=== PATIENT | male | born 1945 | race Caucasian/White ===

== ENCOUNTER 2019-05-07 21:17 | Emergency (ER) | payer MEDICARE ==
[~2019-05-07] VITALS: Ht 180.3 cm; Wt 93.4 kg
[2019-05-07 23:05] LABS: BASOPHILS # (AUTO) 0.1 (0.0-0.1); BASOPHILS % 0.5 % (0.0-1.0); EOSINOPHILS # (AUTO) 0.1 (0.0-0.4); EOSINOPHILS % 1.1 % (0.0-6.0); HEMATOCRIT 43.7 % (38.2-49.6); HEMOGLOBIN 15.8 g/dL (14.0-18.0); LYMPHOCYTES # (AUTO) 1.5 (1.0-3.2); LYMPHOCYTES % 15.8 % (18.0-39.1); MEAN CORPUSCULAR HEMOGLOBIN 31.7 pg (28-32); MEAN CORPUSCULAR HGB CONC 36.2 g/dL (31-35); MEAN CORPUSCULAR VOLUME 87.6 fL (81-99); MONOCYTES # (AUTO) 0.8 (0.2-0.8); MONOCYTES % 7.9 % (4.4-11.3); NEUTROPHILS # (AUTO) 7.1 (2.1-6.9); NEUTROPHILS % 73.8 % (38.7-80.0); PLATELET COUNT 343 x10e3/uL (140-360); RED BLOOD COUNT 4.99 x10e6/uL (4.3-5.7); RED CELL DISTRIBUTION WIDTH 13.3 % (11.7-14.4)
[2019-05-07 23:06] LABS: BILIRUBIN,URINE NEGATIVE (NEGATIVE); CLARITY,URINE CLOUDY (CLEAR); COLOR,URINE YELLOW (YELLOW); KETONES,URINE NEGATIVE (NEGATIVE); LEUKOCYTE ESTERASE ,URINE LARGE (NEGATIVE); NITRITE,URINE POSITIVE (NEGATIVE); PROTEIN,URINE DIPSTICK 1+ (NEGATIVE); URINE UROBILINOGEN 0.2 mg/dL (0.2 - 1)
[2019-05-07 23:19] LABS: BACTERIA,URINE MANY /HPF; EPITHELIAL CELLS,URINE FEW /LPF; WBC,URINE (MAN) >50 /HPF (0-5)
[2019-05-07 23:20] LABS: RENAL EPITHELIAL CELLS,URINE FEW; TRANSITIONAL EPI CELLS,URINE FEW
[2019-05-07 23:21] LABS: ANION GAP 15.5 mmol/L (8-16); BLOOD UREA NITROGEN 14 mg/dL (7-26); BUN/CREATININE RATIO 12 (6-25); CALCIUM 9.6 mg/dL (8.4-10.2); CARBON DIOXIDE 23 mmol/L (22-29); CHLORIDE 103 mmol/L (98-107); CREATININE, SERUM 1.15 mg/dL (0.72-1.25); EST GLOMERULAR FILTRATION RATE > 60 ML/MIN (60-); GLUCOSE 173 mg/dL (74-118); POTASSIUM 3.5 mmol/L (3.5-5.1); SODIUM 138 mmol/L (136-145)
--- NOTE | 2019-05-07 23:26 | Diagnostic Imaging Report ---
CT Abdomen and Pelvis without contrast INDICATION: Flank pain, history of urostomy TECHNIQUE: Thin collimation axial images obtained from the diaphragm to the level of the pubic symphysis without nonionic intravenous contrast. Dose reduction techniques used: Automated exposure control, adjustment of the mAs and/or kVp according to patient size, standardized low-dose protocol, and/or iterative reconstruction technique. RADIATION DOSE: Total DLP: 688.6 mGy*cm Estimated effective dose: (DLP x 0.015 x size factor) mSv CTDIvol has been reviewed. It is below the limits set by the Radiation Protocol Committee (RPC). COMPARISON: None. ABDOMEN FINDINGS: Lung Bases: Mild atelectasis and bibasilar fibrotic changes. There is prominence of the pericardial fat pads. Liver: Normal in attenuation without mass. Gallbladder: Present and contains a calcified gallstone measuring 12 mm. No ductal dilatation. Pancreas: Fatty atrophy without mass or ductal dilatation. Spleen: Top normal in size. No mass. Adrenal Glands: No evidence for mass. Kidneys: Right: No renal calculus. Large cyst extending into the renal sinus measures 5.6 x 7.7 cm. No hydronephrosis Left: No renal calculus. A cyst in the posterior interpolar cortex measures 3.5 cm. Mild fullness of the renal collecting system. Aorta: Normal in diameter with diffuse calcifications PELVIS FINDINGS: Bowel: Stomach: Normal. Small Bowel: Normal in caliber with normal wall thickness. Large Bowel: Diverticulosis coli. No associated inflammation. Appendix: Normal. Bladder: Absent. Right lower quadrant ileostomy is present without parastomal hernia. Ureters: The left ureter is mildly distended without surrounding inflammation or evidence of calculus. No calculus in the right ureter. Peritoneum/retroperitoneum: No free fluid or fluid collection. Lymph nodes: No abdominal, pelvic, or inguinal lymphadenopathy.. Bones: Degenerative changes of the spine. Mild height loss of the L3 vertebral body, likely chronic. Grade 1 retrolisthesis of L3 on L4 without pars defects. Mild degenerative changes of the hips. No lytic or blastic lesions.. IMPRESSION: 1. Status post cystectomy and ileal conduit formation. No evidence of renal calculus. Mild nonspecific fullness of the left renal pelvis and left ureter without doretha hydroureteronephrosis. Urinary tract infection cannot be excluded. 2. Diverticulosis coli. No evidence for bowel obstruction or inflammation. Normal appendix. 3. Bilateral renal cysts. 4. Cholelithiasis. Normal biliary tree. Signed by: Dr. Evelio Vilchis MD on 05/07/2019 11:23 PM
[2019-05-07] MEDS ORDERED: KETOROLAC TROMETHAMINE 30 MG/ML VIAL IV ONE (23:45)
[2019-05-07] MEDS ORDERED: CEFTRIAXONE SOD 1 GM/NS 50 ML 50 ML IV ONE (23:45)
[2019-05-08 00:57] VITALS: BP 146/70
== END 2019-05-08 01:06 | disposition home or self-care (01) ==
LOC: ER 21:17
DX: R10.9 Unspecified abdominal pain (principal); M54.5 Low back pain; I10 Essential (primary) hypertension; E11.9 Type 2 diabetes mellitus without complications; Z85.51 Personal history of malignant neoplasm of bladder
CPT/HCPCS: 36415; 74176; 80048; 81001; 85025; 87086; 87186; 99284; J0696; J1885

== ENCOUNTER 2020-02-06 11:48 | Observation (INO) | payer MEDICARE ==
[2020-02-05] MEDS: INSULIN LISPRO 100 UNIT/1 ML 3ML VIAL SQ SCH (21:40)
[~2020-02-06] VITALS: Ht 154.9 cm; Wt 96.2 kg
[2020-02-06] MEDS ORDERED: CARVEDILOL6.25 MG PO (11:59)
[2020-02-06] MEDS ORDERED: LOVASTATIN20 MG PO (11:59)
[2020-02-06] MEDS ORDERED: JANUMET XR 1001 EACH PO (11:59)
[2020-02-06] MEDS ORDERED: RAMIPRIL10 MG PO (11:59)
[2020-02-06] MEDS ORDERED: PANTOPRAZOLE 40 MG 10ML VIAL IV NR (12:15)
[2020-02-06 12:25] LABS: BASOPHILS % 0.5 % (0.0-1.0); EOSINOPHILS # (AUTO) 0.1 (0.0-0.4); EOSINOPHILS % 1.5 % (0.0-6.0); HEMATOCRIT 45.4 % (38.2-49.6); HEMOGLOBIN 15.6 g/dL (14.0-18.0); LYMPHOCYTES # (AUTO) 1.4 (1.0-3.2); LYMPHOCYTES % 23.3 % (18.0-39.1); MEAN CORPUSCULAR HEMOGLOBIN 30.2 pg (28-32); MEAN CORPUSCULAR HGB CONC 34.4 g/dL (31-35); MONOCYTES # (AUTO) 0.6 (0.2-0.8); MONOCYTES % 9.6 % (4.4-11.3); NEUTROPHILS % 64.1 % (38.7-80.0); PLATELET COUNT 290 x10e3/uL (140-360); RED BLOOD COUNT 5.16 x10e6/uL (4.3-5.7); RED CELL DISTRIBUTION WIDTH 13.3 % (11.7-14.4)
[2020-02-06 12:33] LABS: INR 1.02; PROTHROMBIN TIME 13.9 seconds (11.9-14.5)
[2020-02-06 12:34] LABS: PARTIAL THROMBOPLASTIN TIME 32.6 seconds (23.8-35.5)
[2020-02-06 12:44] LABS: ALANINE AMINOTRANSFERASE 11 IU/L (0-55); ALBUMIN/GLOBULIN RATIO 1.3 (0.8-2.0); ALKALINE PHOSPHATASE 51 IU/L (40-150); ANION GAP 11.8 mmol/L (8-16); BLOOD UREA NITROGEN 19 mg/dL (7-26); BUN/CREATININE RATIO 15 (6-25); CALCIUM 9.6 mg/dL (8.4-10.2); CARBON DIOXIDE 25 mmol/L (22-29); CHLORIDE 107 mmol/L (98-107); CREATINE KINASE 49 IU/L (30-200); CREATININE, SERUM 1.24 mg/dL (0.72-1.25); EST GLOMERULAR FILTRATION RATE 57 ML/MIN (60-); GLUCOSE 150 mg/dL (74-118); POTASSIUM 4.8 mmol/L (3.5-5.1); SODIUM 139 mmol/L (136-145)
--- OUTSIDE RECORDS SUMMARY | 2020-02-06 13:21 | XMS REPORT | Summary of Care ---
Author Author [facility] Organization [facility] Address Unknown Phone Unavailable Care Team Providers Care Launchman Name Role Phone Roya Hoffmann PCP Encounter HQ Trentntr_gray(FIN) [id number] Date(s): 06/11/18 - 06/12/18 [facility] [address] [place] [address]- Vital Signs No data available for this section Problem List Condition Effective Dates Status Health Status Informan t Benign essential Active HTN(Confirmed) Mixed Active hypertriglyceridemia (Confirmed) History of TIA Active (transient ischemic attack)(Confirmed) Bladder Resolved cancer(Confirmed) Microalbuminuria(Con Active firmed) Type 2 diabetes Active mellitus(Confirmed) Presence of Active urostomy(Confirmed) Allergies, Adverse Reactions, Alerts Substance Reaction Severity Status sulfa drugs Active NKFA Active Medications Janumet XR 100 mg-1000 mg oral tablet, extended release = 1 tab, PO, Daily, # 90 ea, Pharmacy: [facility] Start Date: 11/27/18 Status: Ordered lovastatin 20 mg oral tablet = 1 tab, PO, Bedtime, # 90 ea, Pharmacy: [facility] Start Date: 11/27/18 Status: Ordered metFORMIN-sitaGLIPtin 1000 mg-100 mg oral tablet, extended release 1 tab, PO, Daily, # 90 tab, 1 Refill(s), Pharmacy: [facility] Start Date: 06/11/18 Stop Date: 11/27/18 Status: Completed Results No data available for this section Immunizations Given and Recorded Vaccine Date Status Refusal Reason influenza virus vaccine, inactivated 04/02/18 G iven Procedures Procedure Date Related Diagnosis Body Site Status Diabetic retinal eye exam1 03/12/18 Completed Construction of urostomy2 06/24/05 Completed Cataract surgery Completed Prostatectomy Completed 1No Retinopathy Dr. Fredy Baird 2Estimated date. This was done for history of bladder cancer. He reports prostate was removed at the same time Social History Social History Type Response Substance Abuse Use: None. Sexual Sexually active: No. Employment/School Status: Employed. 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 Alcohol Never Smoking Status Never smoker; Exposure to T obacco Smoke None; Cigarette Smoking Last 365 Days No; Reg Smoking Cessation Counseli ng No entered on: 11/12/18 Assessment and Plan No data available for this section
--- OUTSIDE RECORDS SUMMARY | 2020-02-06 13:21 | XMS REPORT | Summary of Care ---
Author Author [facility] Organization [facility] Address Unknown Phone Unavailable Care Team Providers Care Director Workers Compensation Name Role Phone Roya Hoffmann PCP Encounter HQ Ashwin_gray(FIN) [id number] Date(s): 05/25/19 - 05/25/19 [facility] [address] [address]- Discharge Disposition: Home or Self Care Attending Physician: Krystina Lu MD Vital Signs Most recent to 1 oldest [Reference Range]: Height 179.07 cm (05/25/19 3:24 PM) Temperature Oral 98.5 DegF [96.4-99.1 DegF] (05/25/19 3:24 PM) Blood Pressure 119/72 mmHg [90-140/60-90 mmHg] (05/25/19 3:24 PM) Peripheral Pulse 83 bpm Rate [60-100 bpm] (05/25/19 3:24 PM) Weight 95.511 kg (05/25/19 3:24 PM) Body Mass Index 29.79 m2 (05/25/19 3:24 PM) Problem List Condition Effective Dates Status Health Status Informan t Benign essential Active HTN(Confirmed) Diabetic peripheral Active neuropathy(Confirmed ) Mixed Active hypertriglyceridemia (Confirmed) History of TIA Active (transient ischemic attack)(Confirmed) Bladder Resolved cancer(Confirmed) Microalbuminuria(Con Active firmed) Pyelonephritis(Confi Active rmed) Type 2 diabetes Active mellitus(Confirmed) Presence of Active urostomy(Confirmed) Allergies, Adverse Reactions, Alerts Substance Reaction Severity Status sulfa drugs Active NKFA Active Medications ciprofloxacin 500 mg oral tablet 500 mg = 1 tab, PO, Q12H, X 7 day, # 14 tab, 0 Refill(s), Pharmacy: [facility] [place] [id number] Start Date: 05/25/19 Stop Date: 06/01/19 Status: Ordered Results No data available for this section Immunizations Given and Recorded Vaccine Date Status Refusal Reason influenza virus vaccine, inactivated 05/15/19 G iven influenza virus vaccine, inactivated 04/02/18 G iven Procedures Procedure Date Related Diagnosis Body Site Status Diabetic retinal eye exam1 03/12/18 Completed Construction of urostomy2 06/24/05 Completed Cataract surgery Completed Prostatectomy Completed 1No Retinopathy Dr. Fredy Baird 2Estimated date. This was done for history of bladder cancer. He reports prostate was removed at the same time Social History Social History Type Response Alcohol Never Employment/School Status: Employed. 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 Sexual Sexually active: No. Substance Abuse Use: None. Smoking Status Never smoker; Exposure to T obacco Smoke None; Cigarette Smoking Last 365 Days No; Reg Smoking Cessation Counseli ng No entered on: 05/25/19 Assessment and Plan No data available for this section
--- OUTSIDE RECORDS SUMMARY | 2020-02-06 13:21 | XMS REPORT | Summary of Care ---
Author Author [facility] Organization [facility] Address Unknown Phone Unavailable Care Team Providers Care Channel Layer Name Role Phone Krystina Lu PCP Encounter HQ Trentntr_gray(FIN) [id number] Date(s): 11/24/19 - 11/25/19 [facility] [address] [place] [address]- Vital Signs No data available for this section Problem List Condition Effective Dates Status Health Status Informan t Benign essential Active HTN(Confirmed) [place] of Active foot(Confirmed) Mixed Active hypertriglyceridemia (Confirmed) History of TIA Active (transient ischemic attack)(Confirmed) Bladder Resolved cancer(Confirmed) Microalbuminuria(Con Active firmed) PAD (peripheral Active artery disease)(Confirmed) Pyelonephritis(Confi Resolved rmed) Type 2 diabetes Active mellitus with peripheral neuropathy(Confirmed ) Presence of Active urostomy(Confirmed) Allergies, Adverse Reactions, Alerts Substance Reaction Severity Status sulfa drugs Active NKFA Active Medications No data available for this section Results No data available for this section Immunizations Given and Recorded Vaccine Date Status Refusal Reason influenza virus vaccine, inactivated 05/15/19 G iven influenza virus vaccine, inactivated 04/02/18 G iven Procedures Procedure Date Related Diagnosis Body Site Status Diabetic retinal eye exam1 03/12/18 Completed Colonoscopy2 2015 Completed Construction of urostomy3 06/24/05 Completed Cataract surgery Completed Prostatectomy Completed 1No Retinopathy Dr. Fredy Baird [id number] - Repeat 5 years 3Estimated date. This was done for history of bladder cancer. He reports prostate was removed at the same time Social History Social History Type Response Alcohol Never Employment/School Status: Employed. 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 Sexual Sexually active: No. Substance Abuse Use: None. Smoking Status Never smoker; Exposure to T obacco Smoke None; Cigarette Smoking Last 365 Days No; Reg Smoking Cessation Counseli ng No entered on: 11/20/19 Assessment and Plan No data available for this section
--- OUTSIDE RECORDS SUMMARY | 2020-02-06 13:21 | XMS REPORT | Continuity of Care Document ---
Author Author [facility] [employer] Organization [employer] Address Unknown Phone Unavailable Care Team Providers Care Network Engineer Name Role Phone [employer] Unavailable Un available Problems Problem Status Onset Date Classification Date Reported Comments Source BRAIN TIA Active 12/06/2017 [facility] TEMPORARY CONFUSION Active 12/06/2017 [facility] Benign essential hypertension (disorder) Active Problem 01/30/2020 [facility] Familial type 5 hyperlipoproteinemia (disorder) Active Problem 01/30/2020 [facility] History of - TIA (context-dependent category) Active Problem 01/30/2020 [facility] Malignant tumor of urinary bladder (disorder) Resolved Problem 01/30/2020 [facility] Microalbuminuria (finding) [place] Problem 01[facility] Diabetes mellitus type 2 (disorder) Active Problem 01/2020 [facility] t Urostomy present (finding) Act [place] Problem 01/2020 [facility] t Diabetic peripheral neuropathy (disorder) Active Problem 07/11/2019 [facility] Pyelonephritis (disorder) Reso lved Problem 01/2020 [facility] [place] - lesion (disorder) Active Problem 01/30/2020 [facility] Peripheral vascular disease (disorder) Active Problem 01/2020 [facility] Medications Medication Details Route Status Patient Instructions Ordering Provider Order Date Source lovastatin 20 mg oral tablet S ee Instructions, TAKE 1 TABLET BY MOUTH EVERY DAY, # 90 tab, 3 Refill(s), Pharmacy: [id number], 177.8, cm, 11/20/19 9:46:00 CDT, Height, 94.545, kg, 11/20/19 9:46:00 CDT, Weight Active 01/27/2020 [facility] 24 HR Metformin hydrochloride 1000 MG / sitagliptin 100 MG Extended Release Tablet [Janumet 100/1000] 1 tab, PO, Daily, # 90 ea, 1 Refill(s), Pharmacy: [facility] #[id number], 177.8, cm, 11/20/19 9:46:00 CDT, Height, 94.545, kg, 11/20/19 9:46:00 CDT, Weight Active 12/02/2019 [facility] carvedilol 6.25 mg oral tablet 6.25 mg = 1 tab, PO, BID, # 180 tab, 3 Refill(s), Pharmacy: [facility] Active 07/07/2019 [facility] ciprofloxacin 500 mg oral tablet 500 mg = 1 tab, PO, Q12H, X 7 day, # 14 tab, 0 Refill(s), Pharmacy: [facility] Active 05/25/2019 [facility] 24 HR Metformin hydrochloride 1000 MG / sitagliptin 100 MG Extended Release Tablet [Janumet 100/1000] 1 tab, PO, Daily, # 90 ea, 1 Refill(s), Pharmacy: [place] [address] Active 05/15/2019 [facility] carvedilol 6.25 mg oral tablet 6.25 mg = 1 tab, PO, BID, # 180 tab, 3 Refill(s), Pharmacy: [place] [address] Active 05/02/2019 [facility] 24 HR Metformin hydrochloride 1000 MG / sitagliptin 100 MG Extended Release Tablet [Janumet 100/1000] = 1 tab, PO, Daily, # 90 ea, Pharmacy: [place] [address] Active 11/28/2018 [facility] lovastatin 20 mg oral tablet = 1 tab, PO, Bedtime, # 90 ea, Pharmacy: [place] [address] Active 11/28/2018 [facility] FreeStyle Precision Amrit Blood Glucose Test Strips 1 ea, MISC, Daily, E11.9, # 100 ea, Not insulin dependent, Does not use insulin pump, Last DM eval date 11/12/18, 3 Refill(s), Pharmacy: [facility] Active 11/12/2018 [facility] 24 HR Metformin hydrochloride 1000 MG / sitagliptin 100 MG Extended Release Tablet 1 tab, PO, Daily, # 90 tab, 1 Refill(s), Pharmacy: [place] [address] No Longer Active 06/11/2018 [facility] lovastatin 20 mg oral tablet 2 0 mg = 1 tab, PO, Bedtime, # 90 tab, 1 Refill(s), Pharmacy: [facility] No Longer Active 06/04/2018 [facility] carvedilol 6.25 mg oral tablet 6.25 mg = 1 tab, PO, BID, # 180 tab, 3 Refill(s), Pharmacy: [facility] Active 05/01/2018 [facility] Folic Acid Notes: (Same as: Fo lvite) No Longer Active 12/08/2017 [facility] Lipitor Notes: (Same As: Lipit or) Inactive 12/08/2017 [facility] Lovastatin 20 mg, Route: PO, D rug form: TAB, Bedtime, Dosing Weight 95.636, kg, Start date: 12/07/17 21:00:00 CDT, Duration: 30 day, Stop date: 01/05/18 21:00:00 CDT No Longer Active 12/08/2017 [facility] Tricor Notes: (Same as: Tricor) Inactive 12/07/2017 [facility] Folic Acid 1 MG Oral Tablet 1 mg, PO, Daily, # 30 tab, 0 Refill(s), Pharmacy: [facility] Active 12/07/2017 [facility] Fenofibrate 145 MG Oral Tablet 145 mg = 1 tab, PO, Daily, # 30 tab, 0 Refill(s), Pharmacy: [facility] Active 12/07/2017 [facility] Saline Flush 0.9% Notes: (Same as: BD Posiflush) Inactive 12/07/2017 [facility] Aspirin 81 MG Enteric Coated Tablet Notes: Do not crush or chew. (Same As: Ecotrin) Inactive 12/07/2017 [facility] Fish Oil Notes: (Same as: José Miguel JAY, [place] 3 fish oil ) Non-Formulary Drug Inactive 12/07/2017 [facility] Ramipril Notes: (Same as:Altac e) Inactive 12/07/2017 [facility] carvedilol Notes: Give with fo od. (Same As: Coreg) Inactive 12/07/2017 [facility] Dextrose 50% Syringe 12.5 gm, 25 mL, Route: IVP, Drug Form: INJ, Dosing Weight 95.636, kg, PRN, PRN Blood Glucose Results, Start date: 12/06/17 23:29:00 CDT, Duration: 30 day, Stop date: 01/05/18 23:28:00 CDT No Longer Active 12/07/2017 [facility] Glucagon 1 mg, Route: IM, Drug form: PDR/INJ, PRN, Dosing Weight 95.636, kg, PRN Blood Glucose Results, Start date: 12/06/17 23:29:00 CDT, Duration: 30 day, Stop date: 01/05/18 23:28:00 CDT No Longer Active 12/07/2017 [facility] Insulin Lispro Notes: (Same as : Humalog ) Roll in palms of hands gently; Do not shake `vigorously. "Single Patient Use Only " WASTE: F/P - Black; E - Municipal Trash Bin Stable for 28 days at room temp erature. Expires in days from Date No Longer Active 12/07/2017 [facility] Saline Flush 0.9% Notes: (Same as: BD Posiflush) No Longer Active 12/07/2017 [facility] Aspirin Notes: Take with food. Inactive 12/07/2017 [facility] Allergies, Adverse Reactions, Alerts Substance Category Reaction Severity Reaction type Status Date Reported Comments Source sulfa drugs Assertion Drug allergy Active [facility] NKFA Assertion Food allergy Active [facility] Immunizations Immunization Date Given Site Status Last Updated Comments Source influenza virus vaccine, inactivated 05/15/2019 Right Deltoid completed [facility] influenza virus vaccine, inactivated 04/02/2018 Right Deltoid completed [facility] Results Order Name Results Value Reference Range Date Interpretation Comments Source CHEM PANEL eGFR 76 12/07/2017 Result Comment: The eGFR is calculated using the CKD-EPI formula. In most young, healthy individuals the eGFR will be >90 mL/min/1.73m2. The eGFR declines with age. An eGFR of 60-89 may be normal in some populations, particularly the elderly, for whom the CKD-EPI formula has not been extensively validated. Use of the eGFR is not recommended in the following populations:

Individuals with unstable creatinine concentrations, including patients and those with serious co-morbid conditions.

Patients with extremes in muscle mass or diet.

The data above are obtained from the National Kidney Disease Education Program (NKDEP) which additionally recommends that when the eGFR is used in patients with extremes of body mass index for purposes of drug dosing, the eGFR should be multiplied by the estimated BMI. [facility] CHEM PANEL BUN 16 7 - 22 12/07/2017 [facility] CHEM PANEL AGAP 9.6 10.0 - 20.0 12/07/2017 [facility] CHEM PANEL Calcium Lvl 9.0 8.5 - 10.5 12/07/2017 [facility] CHEM PANEL Creatinine Lvl 0.98 0.50 - 1.40 12/07/2017 [facility] CHEM PANEL Sodium Lvl 142 135 - 145 12/07/2017 [facility] CHEM PANEL Potassium Lvl 3.6 3.5 - 5.1 12/07/2017 [facility] CHEM PANEL CO2 27 24 - 32 12/07/2017 [facility] CHEM PANEL Chloride Lvl 109 95 - 109 12/07/2017 [facility] CHEM PANEL Glucose Lvl 133 70 - 99 12/07/2017 [facility] HEMATOLOGY Eosinophils 1.7 0.0 - 4.0 12/07/2017 [facility] HEMATOLOGY Basophils 0.4 0.0 - 1.0 12/07/2017 [facility] HEMATOLOGY Lymphocytes # 1.7 1.0 - 5.5 12/07/2017 [facility] HEMATOLOGY Segs-Bands # 4.3 1.5 - 8.1 12/07/2017 [facility] HEMATOLOGY Monocytes # 0.6 0.0 - 0.8 12/07/2017 [facility] HEMATOLOGY Eosinophils # 0.1 0.0 - 0.5 12/07/2017 [facility] Monocytes 9.4 2.0 - 12.0 12/07/2017 [facility] Lymphocytes 25.7 20.0 - 40.0 12/07/2017 [facility] HEMATOLOGY Segs 62.8 45.0 - 75.0 12/07/2017 [facility] MCV 88.2 80.0 - 94.0 12/07/2017 [facility] MCHC 34.5 32.0 - 36.0 12/07/2017 [facility] MCH 30.5 27.0 - 31.0 12/07/2017 [facility] Platelet 229 133 - 450 12/07/2017 [facility] RDW 14.1 11.5 - 14.5 12/07/2017 [facility] Hct 43.7 42.0 - 54.0 12/07/2017 [facility] MPV 8.9 7.4 - 10.4 12/07/2017 [facility] HEMATOLOGY WBC 6.8 3.7 - 10.4 12/07/2017 [facility] HEMATOLOGY Hgb 15.1 14.0 - 18.0 12/07/2017 [facility] HEMATOLOGY RBC 4.95 4.70 - 6.10 12/07/2017 [facility] SPECIAL CHEMISTRY Hgb A1C 7.1 <=5.6 % 12/07/2017 [facility] CARDIAC ENZYMES Troponin-I <0.02 0.00 - 0.40 12/06/2017 [facility] CARDIAC ENZYMES CK MB <1.0 0.5 - 3.6 12/06/2017 [facility] CARDIAC ENZYMES Total CK 58 12 - 191 12/06/2017 [facility] CARDIAC ENZYMES CK MB Index <1.7 0.0 - 2.5 12/06/2017 [facility] CHEM PANEL eGFR 61 12/06/2017 Result Comment: The eGFR is calculated using the CKD-EPI formula. In most young, healthy individuals the eGFR will be >90 mL/min/1.73m2. The eGFR declines with age. An eGFR of 60-89 may be normal in some populations, particularly the elderly, for whom the CKD-EPI formula has not been extensively validated. Use of the eGFR is not recommended in the following populations:

Individuals with unstable creatinine concentrations, including patients and those with serious co-morbid conditions.

Patients with extremes in muscle mass or diet.

The data above are obtained from the National Kidney Disease Education Program (NKDEP) which additionally recommends that when the eGFR is used in patients with extremes of body mass index for purposes of drug dosing, the eGFR should be multiplied by the estimated BMI. [facility] CHEM PANEL AST 10 0 - 37 12/06/2017 [facility] CHEM PANEL ALT 19 0 - 65 12/06/2017 [facility] CHEM PANEL Alk Phos 56 39 - 136 12/06/2017 [facility] CHEM PANEL Bili Total 0.8 0.2 - 1.3 12/06/2017 [facility] CHEM PANEL AGAP 13.6 10.0 - 20.0 12/06/2017 [facility] CHEM PANEL B/C Ratio 14 6 - 25 12/06/2017 [facility] CHEM PANEL A/G Ratio 1.1 0.7 - 1.6 12/06/2017 [facility] CHEM PANEL Globulin 3.4 2.7 - 4.2 12/06/2017 [facility] CHEM PANEL Creatinine Lvl 1.19 0.50 - 1.40 12/06/2017 [facility] CHEM PANEL Glucose Lvl 201 70 - 99 12/06/2017 [facility] CHEM PANEL Sodium Lvl 143 135 - 145 12/06/2017 [facility] CHEM PANEL BUN 17 7 - 22 12/06/2017 [facility] CHEM PANEL Potassium Lvl 4.6 3.5 - 5.1 12/06/2017 [facility] CHEM PANEL Chloride Lvl 106 95 - 109 12/06/2017 [facility] CHEM PANEL Albumin Lvl 3.9 3.5 - 5.0 12/06/2017 [facility] CHEM PANEL Total Protein 7.3 6.4 - 8.4 12/06/2017 [facility] CHEM PANEL Calcium Lvl 9.1 8.5 - 10.5 12/06/2017 [facility] CHEM PANEL CO2 28 24 - 32 12/06/2017 [facility] HEMATOLOGY RBC 5.24 4.70 - 6.10 12/06/2017 [facility] HEMATOLOGY Hgb 15.8 14.0 - 18.0 12/06/2017 [facility] HEMATOLOGY WBC 8.6 3.7 - 10.4 12/06/2017 [facility] MCH 30.1 27.0 - 31.0 12/06/2017 [facility] HEMATOLOGY MCV 88.6 80.0 - 94.0 12/06/2017 [facility] HEMATOLOGY Hct 46.4 42.0 - 54.0 12/06/2017 [facility] MCHC 34.0 32.0 - 36.0 12/06/2017 [facility] HEMATOLOGY RDW 14.2 11.5 - 14.5 12/06/2017 [facility] HEMATOLOGY Platelet 263 133 - 450 12/06/2017 [facility] HEMATOLOGY MPV 9.3 7.4 - 10.4 12/06/2017 [facility] HEMATOLOGY Eosinophils # 0.1 0.0 - 0.5 12/06/2017 [facility] HEMATOLOGY Monocytes # 0.5 0.0 - 0.8 12/06/2017 [facility] HEMATOLOGY Monocytes 6.3 2.0 - 12.0 12/06/2017 [facility] HEMATOLOGY Eosinophils 0.7 0.0 - 4.0 12/06/2017 [facility] HEMATOLOGY Segs 72.4 45.0 - 75.0 12/06/2017 [facility] HEMATOLOGY Lymphocytes 20.4 20.0 - 40.0 12/06/2017 [facility] Lymphocytes # 1.8 1.0 - 5.5 12/06/2017 [facility] HEMATOLOGY Segs-Bands # 6.2 1.5 - 8.1 12/06/2017 [facility] HEMATOLOGY Basophils 0.2 0.0 - 1.0 12/06/2017 [facility] Pathology Reports No Data Provided for This Section Diagnostic Reports Report Value Date Source Brain wo contrast MRI MRI BRAI N WITHOUT CONTRAST INDICATION: Acute confusion with transient amnesia, transient ischemic attack symptoms COMPARISON: CT brain 12/06/2017 DISCUSSION: There is no appreciable brain atrophy. The white matter is normal in signal. The normal flow voids of the bilateral internal carotid arteries and vertebral basilar arteries are well visualized. There is no evidence of acute vascular insults, space occupying lesions, hemorrhage, hydrocephalus, midline shift, or extra-axial fluid collections. No cortical-based, suprasellar, craniocervical, or bone abnormalities are seen. IMPRESSION: No intracranial abnormalities are visualized. SL:16 12/07/2017 [facility] Carotid artery Doppler bilat US EXAM: US EXTRACRANIAL ARTERIAL DOPPLER DATE: 12/06/2017 11:26 PM CDT INDICATION: Altered mental status COMPARISON: None. TECHNIQUE: Multiplanar grayscale, color Doppler and spectral Doppler ultrasound of the carotid and vertebral arteries. FINDINGS: RIGHT CAROTID ARTERY: Grayscale images:No significant plaque ICA PSV: 77 cm/sec CCA PSV: 85 cm/sec ICA/CCA PSV RATIO:0.9 Vertebral flow: Antegrade. External carotid: Patent. LEFT CAROTID ARTERY: Grayscale images: No significant plaque ICA PSV: 75 cm/sec CCA PSV: 87 cm/sec ICA/CCA PSV RATIO:0.9 Vertebral flow: Antegrade. External carotid: Patent. IMPRESSION: No evidence for hemodynamically significant stenosis of the carotid arteries. According to the 2003 consensus criteria: <50% stenosis: PSV <125 cm/sec, EDV <40cm/sec, ICA:CCA ratio <2 50-69% stenosis: PSV 125-230cm/sec, EDV 40-100cm/sec, ICA:CCA ratio 2-4 >70% stenosis: PSV >230cm/sec, EDV >100cm/sec, ICA:CCA ratio >4 Reference: Radiology. 2003 [id number]. Carotid Artery Stenosis: Olvera-scale and Doppler US diagnosis- Society of Radiologists in Ultrasound Consensus Conference. Lance EG, Lauro CB, Sasha GL, et. al. SL: [id number] 12/07/2017 [facility] Chest 1view DX Patient Name: Sandip TANNER : 1945; Age: 72 years Male MR: [id number] Study: Chest 1view DX Order Time: 12/06/2017 1:39 PM CDT CLINICAL INDICATION: Chest pain - TIA COMPARISON: None FINDINGS: Lines: None. Lungs: Minimal left lung base atelectasis. No significant effusion or pneumothorax. Mediastinum: The cardiac silhouette is within normal limits of size. Midline trachea. Bones and soft tissues: No acute abnormalities. IMPRESSION: No acute cardiopulmonary abnormalities. SL: [id number] 12/06/2017 [facility] Brain Stroke wo contrast CT EX AM: CT BRAIN WITHOUT CONTRAST DATE: 12/06/2017 1:39 PM CDT INDICATION: - tia symptoms. Acute CVA. COMPARISON: None. TECHNIQUE: Routine axial CT images of the brain were obtained. IV contrast: None. DLP: 859.11 mGy-cm FINDINGS: Non-contrast images of the head demonstrate no edema, hemorrhage, mass lesion or other acute intracranial abnormality. The draek-white matter distinction is preserved. The ventricles are normal. The basal cisterns and sulci are normal in size. Marked atherosclerotic calcification of the distal internal carotid and vertebral arteries. Mild mucosal thickening of the ethmoid air cells. The mastoid air cells are clear. IMPRESSION: 1. No definite acute infarct or intracra nial hemorrhage detected. SL: [id number] 12/06/2017 [facility] Consultation Notes No Data Provided for This Section Discharge Summaries No Data Provided for This Section History and Physicals No Data Provided for This Section Vital Signs Vital Sign Value Date Comments Source Systolic (mm Hg) 146 11/20/2019 [facility] Diastolic (mm Hg) 85 11/20/2019 [facility] Heart Rate 67 11/20/2019 [facility] Temperature Oral (F) 98.7 F 11/20/2019 [facility] Height 177.8 cm 11/20/2019 [facility] Weight 94.545 11/20/2019 [facility] BMI Calculated 29.91 11/20/2019 [facility] Systolic (mm Hg) 128 08/21/2019 [facility] Diastolic (mm Hg) 84 08/21/2019 [facility] Heart Rate 68 08/21/2019 [facility] Temperature Oral (F) 98.5 F 08/21/2019 [facility] Height 177.8 cm 08/21/2019 [facility] Weight 93.636 08/21/2019 [facility] BMI Calculated 29.62 08/21/2019 [facility] Systolic (mm Hg) 119 05/25/2019 [facility] Diastolic (mm Hg) 72 05/25/2019 [facility] Heart Rate 83 05/25/2019 [facility] Temperature Oral (F) 98.5 F 05/25/2019 [facility] Height 179.07 cm 05/25/2019 [facility] Weight 95.511 05/25/2019 [facility] BMI Calculated 29.79 05/25/2019 [facility] Systolic (mm Hg) 141 05/15/2019 [facility] Diastolic (mm Hg) 84 05/15/2019 [facility] Heart Rate 74 05/15/2019 [facility] Temperature Oral (F) 98.5 F 05/15/2019 [facility] Height 179.07 cm 05/15/2019 [facility] Weight 96.023 05/15/2019 [facility] BMI Calculated 29.95 05/15/2019 [facility] Systolic (mm Hg) 143 02/12/2019 [facility] Diastolic (mm Hg) 82 02/12/2019 [facility] Heart Rate 67 02/12/2019 [facility] Temperature Oral (F) 98.4 F 02/12/2019 [facility] Height 179.07 cm 02/12/2019 [facility] Weight 95.455 02/12/2019 [facility] BMI Calculated 29.77 02/12/2019 [facility] Weight 94.545 11/12/2018 [facility] BMI Calculated 29.91 11/12/2018 [facility] Height 177.8 cm 11/12/2018 [facility] Temperature Oral (F) 98.0 F 11/12/2018 [facility] Heart Rate 63 11/12/2018 [facility] Systolic (mm Hg) 120 11/12/2018 [facility] Diastolic (mm Hg) 79 11/12/2018 [facility] Systolic (mm Hg) 153 07/31/2018 [facility] Diastolic (mm Hg) 81 07/31/2018 [facility] Heart Rate 76 07/31/2018 [facility] Temperature Oral (F) 97.6 F 07/31/2018 [facility] Height 177.8 cm 07/31/2018 [facility] Weight 96.364 07/31/2018 [facility] BMI Calculated 30.48 07/31/2018 [facility] Systolic (mm Hg) 118 04/02/2018 [facility] Diastolic (mm Hg) 76 04/02/2018 [facility] Temperature Oral (F) 98.1 F 04/02/2018 [facility] Heart Rate 71 04/02/2018 [facility] BMI Calculated 29.91 04/02/2018 [facility] Height 177.8 cm 04/02/2018 [facility] Weight 94.545 04/02/2018 [facility] Systolic (mm Hg) 112 12/07/2017 [facility] Diastolic (mm Hg) 63 12/07/2017 [facility] Respitory Rate 17 12/07/2017 [facility] Heart Rate 77 12/07/2017 [facility] Temperature Oral (F) 99.0 F 12/07/2017 [facility] Systolic (mm Hg) 144 12/07/2017 [facility] Diastolic (mm Hg) 71 12/07/2017 [facility] Respitory Rate 17 12/07/2017 [facility] Heart Rate 71 12/07/2017 [facility] Temperature Oral (F) 98.9 F 12/07/2017 [facility] Temperature Oral (F) 98.1 F 12/07/2017 [facility] Heart Rate 71 12/07/2017 [facility] Respitory Rate 18 12/07/2017 [facility] Systolic (mm Hg) 121 12/07/2017 [facility] Diastolic (mm Hg) 69 12/07/2017 [facility] Weight 95.636 12/07/2017 [facility] BMI Calculated 30.25 12/07/2017 [facility] Height 177.8 cm 12/07/2017 [facility] Weight 95.455 12/06/2017 [facility] BMI Calculated 30.2 12/06/2017 [facility] Height 177.8 cm 12/06/2017 [facility] Encounters Location Location Details Encounter Type Encounter Number Reason For Visit Attending Provider ADM Date DC Date Status Source Outpatient [id number] ROYA WALTERS 11/14/2017 [facility] Outpatient [id number] ROYA WALTERS 11/29/2017 [facility] Observation [id number] Elias Atwood 12/06/2017 12/07/2017 [facility] Outpatient [id number] ROYA WALTERS 04/02/2018 [facility] Outpatient [id number] Roya Rloomelissa 04/02/2018 2018 [facility] Phone Message [id number] 05/01/2018 05/03/2018 [facility] Phone Message [id number] 06/04/2018 06/06/2018 [facility] Phone Message [id number] 06/10/2018 06/12/2018 [facility] Phone Message [id number] 06/11/2018 06/13/2018 [facility] Outpatient [id number] KRYSTINA MEKHI 07/31/2018 Active [facility] Outpatient [id number] Roya Tahira 07/31/2018 08/01/2018 [facility] Outpatient [id number] KRYSTINA MEKHI 10/31/2018 Active [facility] Pre-Reg [id number] Krystina Mekhi 10/31/2018 10/31/2018 [facility] Outpatient [id number] Krystina Mekhi 11/04/2018 Active [place] [facility] Pre-Reg [id number] [place]rystina [place] 11/04/2018 11/04/2018 [facility] Outpatient [id number] Krystina [place] 11/12/2018 Active [place] [facility] Outpatient [id number] Krystina [place] 11/13/1911/13/2018 [facility] Between Visit [id number] 11/14/2018 11/15/2018 [facility] Outpatient [id number] Krystina [place] 02/12/2019 Active [place] [facility] Outpatient [id number] Krystina [place] 02/13/2002/13/2019 [facility] Between Visit [id number] 02/17/2019 02/18/2019 [facility] Phone Message [id number] 05/01/2019 05/03/2019 [facility] Outpatient [id number] Krystina [place] 05/15/[address] [facility] Outpatient [id number] Krystina [place]hi 05/15/2005/16/2019 [facility] Between Visit [id number] 05/18/2019 05/19/2019 [facility] Outpatient [id number] Krystina [place] 05/25/[address] [facility] Outpatient [id number] Krystina [place] 05/25/2005/26/2019 [facility] Between Visit [id number] 05/30/2019 05/31/2019 [facility] Phone Message [id number] 07/07/2019 07/09/2019 [facility] Outpatient [id number] Krystina [place] 08/21/[address] [facility] Outpatient [id number] Krystina [place] 08/21/19 20 08/22/2019 [facility] Outpatient [id number] Krystina [place] 08/24/[address] [facility] Between Visit [id number] 08/24/2019 08/25/2019 [facility] Pre-Reg [id number] Krystina [place] 08/24/2019 08/24/2019 [facility] Outpatient [id number] Krystina [place] 11/20/2019 Active [facility] Outpatient [id number] Krystina [place] 11/20/1911/21/2019 [facility] Between Visit [id number] 11/24/2019 11/25/2019 [facility] Between Visit [id number] 12/01/2019 12/02/2019 [facility] Between Visit [id number] 01/27/2020 01/28/2020 Medical [facility] Outpatient [id number] Krystina Lu 03/18/2020 Active [facility] Procedures Procedure Code Date Perfomer Comments Source Diabetic retinal eye exam<sup>1</sup> [id number] 03/12/[address] Fredy Baird [facility] Colonoscopy<sup>2</sup> [id number] 06/24/2015 2016 - Repeat 5 years [facility] Construction of urostomy<sup>2</sup> [id number] 06/24/2005 Estimated date. This was done for history of bladder cancer. He reports prostate was removed at the same time [facility] Construction of urostomy<sup>1</sup> [id number] 06/24/2005 Estimated date. This was done for history of bladder cancer. He reports prostate was removed at the same time [facility] Construction of urostomy<sup>3</sup> [id number] 06/24/2005 Estimated date. This was done for history of bladder cancer. He reports prostate was removed at the same time [facility] Cataract surgery [id number] [facility] Prostatectomy [id number] [facility] Assessment and Plan No Data Provided for This Section Plan of Care No Data Provided for This Section Social History Social History Date Source Social History TypeResponse Alcohol Never Employment/School Status: Employed. 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 Sexual Sexually active: No. Substance Abuse Use: None. Smoking Status Never smoker; Exposure to Tobacco Smoke None; Cigarette Smoking Last 365 Days No; Reg Smoking Cessation Counseling No entered on: 11/20/19 04/02/2018 [facility] Social History TypeResponse Substance Abuse Use: None. Sexual Sexually active: No. Employment/School Status: Employed. Alcohol Never Smoking Status Never smoker; Exposure to Tobacco Smoke None; Cigarette Smoking Last 365 Days No; Reg Smoking Cessation Counseling No entered on: 12/06/17 11/14/2017 [facility] Family History No Data Provided for This Section Advance Directives No Data Provided for This Section Functional Status No Data Provided for This Section
--- OUTSIDE RECORDS SUMMARY | 2020-02-06 13:21 | XMS REPORT | Summary of Care ---
Author Author [facility] Organization [facility] Address Unknown Phone Unavailable Care Team Providers Care Take Out Waiter Name Role Phone Roya Hoffmann Aby PCP Encounter HQ Encntr_gray(FIN) [phone] Date(s): 06/10/18 - 06/11/18 [facility] [address] [place] [address]- Vital Signs No data available for this [...] No. Employment/School Status: Employed. 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 Alcohol Never Smoking Status Never smoker; Exposure to T obacco Smoke None; Cigarette Smoking Last 365 Days No; Reg Smoking Cessation Counseli ng No entered on: 11/12/18 Assessment and Plan No data available for this section
--- OUTSIDE RECORDS SUMMARY | 2020-02-06 13:21 | XMS REPORT | Summary of Care ---
Author Author [facility] Organization [facility] Address Unknown Phone Unavailable Care Team Providers Care Sourcing Manager Name Role Phone RolomelissaRoya PCP Encounter HQ Ashwin_gray(FIN) [phone] Date(s): 05/01/18 - 05/02/18 [facility] [address] [place] [address]- Vital Signs No data available for this section Problem List Condition Effective Dates Status Health Status Informan t Benign essential Active HTN(Confirmed) Mixed Active hypertriglyceridemia (Confirmed) History of TIA Active (transient ischemic attack)(Confirmed) Bladder Resolved cancer(Confirmed) Microalbuminuria(Con Active firmed) Type 2 diabetes Active mellitus(Confirmed) Presence of Active urostomy(Confirmed) Allergies, Adverse Reactions, Alerts Substance Reaction Severity Status sulfa drugs Active NKFA Active Medications carvedilol 6.25 mg oral tablet 6.25 mg = 1 tab, PO, BID, # 180 tab, 3 Refill(s), Pharmacy: [facility] [place] [facility] Start Date: 05/01/18 Stop Date: 04/26/19 Status: Ordered Results No data available for [...] No. Employment/School Status: Employed. 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 Alcohol Never Smoking Status Never smoker; Exposure to T obacco Smoke None; Cigarette Smoking Last 365 Days No; Reg Smoking Cessation Counseli ng No entered on: 11/12/18 Assessment and Plan No data available for this section
--- OUTSIDE RECORDS SUMMARY | 2020-02-06 13:21 | XMS REPORT | Summary of Care ---
Author Author [facility] Organization [facility] Address Unknown Phone Unavailable Care Team Providers Care Clerk Operator Name Role Phone Roya Hoffmann PCP Encounter HQ Trentntr_gray(FIN) [phone] Date(s): 04/02/18 - 04/02/18 [facility] [address] [place] [address]- Discharge Disposition: Home or Self Care Attending Physician: Roya Hoffmann MD Vital Signs Most recent to 1 oldest [Reference Range]: Height 177.8 cm (04/02/18 3:25 PM) Temperature Oral 98.1 DegF [96.4-99.1 DegF] (04/02/18 3:25 PM) Blood Pressure 118/76 mmHg [90-140/60-90 mmHg] (04/02/18 3:25 PM) Peripheral Pulse 71 bpm Rate [60-100 bpm] (04/02/18 3:25 PM) Weight 94.545 kg (04/02/18 3:25 PM) Body Mass Index 29.91 m2 (04/02/18 3:25 PM) Problem List Condition Effective Dates Status Health Status Informan t Benign essential Active HTN(Confirmed) Mixed Active hypertriglyceridemia (Confirmed) History of TIA Active (transient ischemic attack)(Confirmed) Bladder Resolved cancer(Confirmed) Microalbuminuria(Con Active firmed) Type 2 diabetes Active mellitus(Confirmed) Presence of Active urostomy(Confirmed) Allergies, Adverse Reactions, Alerts Substance Reaction Severity Status sulfa drugs Active NKFA Active Medications No Known Medications Results No data available for this section Immunizations Given and Recorded Vaccine Date Status Refusal Reason influenza virus vaccine, inactivated 04/02/18 [facility] Procedures Procedure Date Related Diagnosis Body Site Status Diabetic retinal eye exam1 03/12/18 Completed Construction of urostomy2 06/24/05 Completed Prostatectomy Completed 1No Retinopathy Dr. Fredy [...] Smoking Cessation Counseli ng No entered on: 07/31/18 Assessment and Plan No data available for this section
--- OUTSIDE RECORDS SUMMARY | 2020-02-06 13:21 | XMS REPORT | Summary of Care ---
Author Author [facility] Organization [facility] Address Unknown Phone Unavailable Care Team Providers Care Eviscerator Name Role Phone Krystina Lu PCP Encounter HQ Joanar_gray(FIN) [phone] Date(s): 12/01/19 - 12/02/19 [facility] [address] [place] [facility] [place] [address]- [phone] Vital Signs No data available for this section Problem List Condition Effective Dates Status Health Status Informan t Benign essential Active HTN(Confirmed) [place] of Active foot(Confirmed) Mixed Active hypertriglyceridemia (Confirmed) [...] 100 mg-1000 mg oral tablet, extended release 1 tab, PO, Daily, # 90 ea, 1 Refill(s), Pharmacy: [id number], 1 77.8, cm, 11/20/19 9:46:00 CDT, Height, 94.545, kg, 11/20/19 9:46:00 CDT, Weight Start Date: 12/02/19 Status: Ordered Results No data available for [...] Prostatectomy Completed 1No Retinopathy Dr. Fredy Baird [id number] - Repeat 5 years 3Estimated date. This was done for history of bladder cancer. He reports prostate was removed at the same time Social History Social History Type Response Alcohol Never Employment/School Status: Employed. 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 Sexual Sexually active: No. Substance Abuse Use: None. Smoking Status Never smoker; Exposure to T obacco Smoke None; Cigarette Smoking Last 365 Days No; Reg Smoking Cessation Counseli ng No entered on: 11/20/19 Assessment and Plan No data available for this section
--- OUTSIDE RECORDS SUMMARY | 2020-02-06 13:21 | XMS REPORT | Summary of Care ---
Author Author [facility] Organization [facility] Address Unknown Phone Unavailable Care Team Providers Care Melter Supervisor Electric Arc Furnace Name Role Phone RolomelissaRoya PCP Encounter HQ Encntr_gray(FIN) [phone] Date(s): 07/07/19 - 07/08/19 [facility] [address] [place] [facility] [place] [address]- Vital Signs No data available for this [...] BID, # 180 tab, 3 Refill(s), Pharmacy: [facility] [place] [id number] Start Date: 07/07/19 Stop Date: 07/01/20 Status: Ordered Results No data available for [...] 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 Sexual Sexually active: No. Substance Abuse Use: None. Smoking Status Never smoker; Exposure to T obacco Smoke None; Cigarette Smoking Last 365 Days No; Reg Smoking Cessation Counseli ng No entered on: 05/25/19 Assessment and Plan No data available for this section
--- OUTSIDE RECORDS SUMMARY | 2020-02-06 13:21 | XMS REPORT | Summary of Care ---
Author Author [facility] Organization [facility] Address Unknown Phone Unavailable Care Team Providers Care Marble Coper Name Role Phone RolomelissaRoya PCP Encounter HQ Joanar_gray(FIN) [phone] Date(s): 05/18/19 - 05/19/19 [facility] [address] [place] [facility] [address]- Vital Signs No data available for this [...] Employment/School Status: Employed. 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 Sexual Sexually active: No. Substance Abuse Use: None. Smoking Status Never smoker; Exposure to T obacco Smoke None; Cigarette Smoking Last 365 Days No; Reg Smoking Cessation Counseli ng No entered on: 05/15/19 Assessment and Plan No data available for this section
--- OUTSIDE RECORDS SUMMARY | 2020-02-06 13:21 | XMS REPORT | Summary of Care ---
Author Author [facility] Organization [facility] Address Unknown Phone Unavailable Care Team Providers Care Cable Rigger Name Role Phone Roya Hoffmann PCP Encounter HQ Encntr_gray(FIN) [phone] Date(s): 10/31/18 - 10/31/18 [facility] [address] [place] [address]- Attending Physician: Krystina Lu MD Vital Signs No data available for this [...]
--- OUTSIDE RECORDS SUMMARY | 2020-02-06 13:21 | XMS REPORT | Summary of Care ---
Author Author [facility] Organization [facility] Address Unknown Phone Unavailable Care Team Providers Care Surgery Consultant Name Role Phone Roya Hoffmann PCP Encounter HQ Ashwin_gray(FIN) [phone] Date(s): 05/15/19 - 05/15/19 [facility] [address] [place] [facility] [facility] [address]- [phone] Discharge Disposition: Home or Self Care Attending Physician: Krystina Lu MD Vital Signs Most recent to 1 oldest [Reference Range]: Height 179.07 cm (05/15/19 8:34 AM) Temperature Oral 98.5 DegF [96.4-99.1 DegF] (05/15/19 8:34 AM) Blood Pressure 141/84 mmHg [90-140/60-90 mmHg] *HI* (05/15/19 8:34 AM) Peripheral Pulse 74 bpm Rate [60-100 bpm] (05/15/19 8:34 AM) Weight 96.023 kg (05/15/19 8:34 AM) Body Mass Index 29.95 m2 (05/15/19 8:34 AM) Problem List Condition Effective Dates Status Health [...] Daily, # 90 ea, 1 Refill(s), Pharmacy: [facility] [place] [address] Start Date: 05/15/19 Status: Ordered Results No data available for [...] Type Response Alcohol Never Employment/School Status: Employed. 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 Sexual Sexually active: No. Substance Abuse Use: None. Smoking Status Never smoker; Exposure to T obacco Smoke None; Cigarette Smoking Last 365 Days No; Reg Smoking Cessation Counseli ng No entered on: 05/15/19 Assessment and Plan No data available for this section
--- OUTSIDE RECORDS SUMMARY | 2020-02-06 13:22 | XMS REPORT | Summary of Care ---
Author Author [facility] Organization [facility] Address Unknown Phone Unavailable Care Team Providers Care Maritime Engineer Name Role Phone Krystina Lu PCP [phone] Encounter HQ Encntr_gray(FIN) [id number] Date(s): 11/20/19 - 11/20/19 [facility] [address] [facility] [place] [address]- [phone] Discharge Disposition: Home or Self Care Attending Physician: Krystina Lu MD Vital Signs Most recent to 1 oldest [Reference Range]: Height 177.8 cm (11/20/19 9:46 AM) Temperature Oral 98.7 DegF [96.4-99.1 DegF] (11/20/19 9:46 AM) Blood Pressure 146/85 mmHg [90-140/60-90 mmHg] *HI* (11/20/19 9:46 AM) Peripheral Pulse 67 bpm Rate [60-100 bpm] (11/20/19 9:46 AM) Weight 94.545 kg (11/20/19 9:46 AM) Body Mass Index 29.91 m2 (11/20/19 9:46 AM) Problem List Condition Effective Dates Status Health Status Informan t Benign essential Active HTN(Confirmed) [place] of Active foot(Confirmed) Mixed Active hypertriglyceridemia (Confirmed) [...] Prostatectomy Completed 1No Retinopathy Dr. Fredy Baird [address] - Repeat 5 years 3Estimated date. This was done for history of bladder cancer. He reports prostate was removed at the same time Social History Social History Type Response Alcohol Never Employment/School Status: Employed. 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 Sexual Sexually active: No. Substance Abuse Use: None. Smoking Status Never smoker; Exposure to T obacco Smoke None; Cigarette Smoking Last 365 Days No; Reg Smoking Cessation Counseli ng No entered on: 11/20/19 Assessment and Plan No data available for this section
--- OUTSIDE RECORDS SUMMARY | 2020-02-06 13:22 | XMS REPORT | Summary of Care ---
Author Author [facility] Organization [facility] Address Unknown Phone Unavailable Care Team Providers Care Armored Car Driver Name Role Phone RolomelissaRoya PCP Encounter HQ Joanar_gray(FIN) [phone] Date(s): 05/29/19 - 05/30/19 [facility] [address] [place] [facility] [place] [address]- Vital Signs No data available for this [...] Employment/School Status: Employed. 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 Sexual Sexually active: No. Substance Abuse Use: None. Smoking Status Never smoker; Exposure to T obacco Smoke None; Cigarette Smoking Last 365 Days No; Reg Smoking Cessation Counseli ng No entered on: 05/25/19 Assessment and Plan No data available for this section
--- OUTSIDE RECORDS SUMMARY | 2020-02-06 13:22 | XMS REPORT | Summary of Care ---
Author Author [facility] Organization [facility] Address Unknown Phone Unavailable Care Team Providers Care Regional Property Manager Name Role Phone Krystina Lu PCP [phone] Encounter HQ Encntr_gray(FIN) [phone] Date(s): 01/27/20 - 01/28/20 [facility] [address] [place] [facility] [address]- Vital Signs No data available for this section Problem List Condition Effective Dates Status Health Status Informan t Benign essential Active HTN(Confirmed) [place] of Active foot(Confirmed) Mixed Active hypertriglyceridemia (Confirmed) History of TIA Active (transient ischemic attack)(Confirmed) Bladder Resolved cancer(Confirmed) Microalbuminuria(Con Active firmed) PAD (peripheral Active artery disease)(Confirmed) Pyelonephritis(Confi Resolved rmed) Type 2 diabetes Active mellitus with peripheral neuropathy(Confirmed ) Presence of Active urostomy(Confirmed) Allergies, Adverse Reactions, Alerts Substance Reaction Severity Status sulfa drugs Active NKFA Active Medications lovastatin 20 mg oral tablet See Instructions, TAKE 1 TABLET BY MOUTH EVERY DAY, # 90 tab, 3 Refill(s), Pharm acy: [facility] #[id number], 177.8, cm, 11/20/19 9:46:00 CDT, Height, 94.54 5, kg, 11/20/19 9:46:00 CDT, Weight Start Date: 01/27/20 Status: Ordered Results No data available for [...] Prostatectomy Completed 1No Retinopathy Dr. Fredy Baird [address] - Repeat 5 years 3Estimated date. This was done for history of bladder cancer. He reports prostate was removed at the same time Social History Social History Type Response Alcohol Never Employment/School Status: Employed. 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 Sexual Sexually active: No. Substance Abuse Use: None. Smoking Status Never smoker; Exposure to T obacco Smoke None; Cigarette Smoking Last 365 Days No; Reg Smoking Cessation Counseli ng No entered on: 11/20/19 Assessment and Plan No data available for this section
--- OUTSIDE RECORDS SUMMARY | 2020-02-06 13:22 | XMS REPORT | Continuity of Care Document ---
Author Author [facility] t Organization [facility] Address [address] [place] [address] Phone Unavailable Care Team Providers Care Police Cadet Name Role Phone NONSTAFF PCP Unavailable Aby Lu Attphys [phone] Eduardo MENDOZA Attphys Unavailable Aby Hoffmann Attphys AtwoodNessa Attphys [place], Nessa Griffin Admphys Problems Condition Name Condition Details Condition Category Status Onset Date Resolution Date Last Treatment Date Treating Clinician Comments Source BRAIN TIA BRAI N TIA Active 12/06/2017 [facility] Diagnosis Active 2017-12-06 00:00:00 2017-12-09 08:59:00 Mingo Weir TEMPORARY CONFUSION TEMP ORARY CONFUSION Active 12/06/2017 [facility] Diagnosis Active 2017-12-06 00:00:00 2017-12-06 20:24:00 Mingo Weir Malignant tumor of urinary bladder (disorder) Malignant tumor of urinary bladder (disorder) Resolved Problem 01/30/2020 [facility] Problem Resolved 2020-01-30 21:44:39 Mingo Weir Pyelonephritis (disorder) Pyel onephritis (disorder) Resolved Problem 01/30/2020 [facility] Problem Resolved 2020-01-30 21:44:39 Mingo Weir Benign essential hypertension (disorder) Benign essential hypertension (disorder) Active Problem 01/30/2020 [facility] Problem Active 2020-01-30 21:44:39 Joel Weir 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) Active Problem 01/30/2020 [facility] Problem Active 2020-01-30 21:44:39 Mingo Weir History of - TIA (context-dependent category) History of - TIA (context-dependent category) Active Problem 01/30/2020 [facility] Problem Active 2020-01-30 21:44:39 Mingo Weir Microalbuminuria (finding) Abdulaziz roalbuminuria (finding) Active Problem 01/30/2020 [facility] Problem Active 2020-01-30 21:44:39 Mingo Weir Diabetes mellitus type 2 (disorder) Diabetes mellitus type 2 (disorder) Active Problem 01/30/2020 [facility] Problem Active 2020-01-30 21:44:39 Memor rafi Weir Urostomy present (finding) Uro stomy present (finding) Active Problem 01/30/2020 [facility] Problem Active 2020-01-30 21:44:39 Mingo Weir Diabetic peripheral neuropathy (disorder) Diabetic peripheral neuropathy (disorder) Active Problem 07/11/2019 [facility] Problem Active 2019-07-11 01:39:49 Migno Weir [place] - lesion (disorder) [place] - lesion (disorder) Active Problem 01/30/2020 [facility] Problem Active 2020-01-30 21: 44:39 [facility] Peripheral vascular disease (disorder) Peripheral vascular disease (disorder) Active Problem 01/30/2020 [facility] Problem Active 2020-01-30 21:44:39 [facility] Allergies, Adverse Reactions, Alerts Allergy Name Allergy Type Status Severity Reaction(s) Onset Date Inacti ve Date Treating Clinician Comments Source Sulfa (Sulfonamide Antibiotics) Allergy to Substance Active 2019-05-07 00:00:00 [facility] sulfa drugs sulfa drugs Active [facility] NKFA NKFA Active [facility] Social History Social Habit Start Date Stop Date Quantity Comments Source Social History 2017-11-14 16:18:32 2017-11-14 16:18:32 [facility] Medications Ordered Medication Name Filled Medication Name Start Date Stop Da te Current Medication? Ordering Clinician Indication Dosage Frequency Signature (SIG) Comments Components Source lovastatin 20 mg oral tablet 2020-01-27 18:28:00 Yes See Instructions, TAKE 1 TABLET BY MOUTH EVERY DAY, # 90 tab, 3 Refill(s), Pharmacy: [facility] #[id number], 177.8, cm, 11/20/19 9:46:00 CDT, Height, 94.545, kg, 11/20/19 9:46:00 CDT, Weight [facility] 24 HR Metformin hydrochloride 1000 MG / sitagliptin 100 MG Extended Release Tablet [Janumet 100/1000] 2019-12-02 12:37:00 Yes 1 tab, PO, Daily, # 90 ea, 1 Refill(s), Pharmacy: [facility] #[id number], 177.8, cm, 11/20/19 9:46:00 CDT, Height, 94.545, kg, 11/20/19 9:46:00 CDT, Weight Mingo Weir carvedilol 6.25 mg oral tablet 2019-07-07 19:00:00 Yes 6.25 mg = 1 tab, PO, BID, # 180 tab, 3 Refill(s), Pharmacy: [facility] ciprofloxacin 500 mg oral tablet 2019-05-25 22:17:00 Yes 500 mg = 1 tab, PO, Q12H, X 7 day, # 14 tab, 0 Refill(s), Pharmacy: [facility] 24 HR Metformin hydrochloride 1000 MG / sitagliptin 100 MG Extended Release Tablet [Junumet ] 2019-05-15 15:10:11 Yes 1 tab, PO, Daily, # 90 ea, 1 Refill(s), Pharmacy: [facility] carvedilol 6.25 mg oral tablet 2019-05-02 15:20:00 Yes 6.25 mg = 1 tab, PO, BID, # 180 tab, 3 Refill(s), Pharmacy: [address] 24 HR Metformin hydrochloride 1000 MG / sitagliptin 100 MG Extended Release Tablet [[place] ] 2018-11-28 01:18:07 Yes = 1 tab, PO, Daily, # 90 ea, Pharmacy: [address] lovastatin 20 mg oral tablet 2018-11-28 01:18:07 Yes = 1 tab, PO, Bedtime, # 90 ea, Pharmacy: [facility] FreeStyle Precision Amrit Blood Glucose Test Strips 2018-11-12 15:29:00 Yes 1 ea, MISC, Daily, E 11.9, # 100 ea, Not insulin dependent, Does not use insulin pump, Last DM eval date 11/12/18, 3 Refill(s), Pharmacy: [address] 24 HR Metformin hydrochloride 1000 MG / sitagliptin 100 MG Extended Release Tablet 2018-06-11 21:38:00 No 1 tab, PO, Daily, # 90 tab, 1 Refill(s), Pharmacy: [address] lovastatin 20 mg oral tablet 2018-06-04 19:17:00 No 20 mg = 1 tab, PO, Bedtime, # 90 tab, 1 Refill(s), Pharmacy: [address] carvedilol 6.25 mg oral tablet 2018-05-01 22:33:00 Yes 6.25 mg = 1 tab, PO, BID, # 180 tab, 3 Refill(s), Pharmacy: [address] Folic Acid 2017-12-08 14:00:00 No Notes: (S rajiv as: Folvite) [facility] Lipitor 2017-12-08 02:00:00 No Notes: (Same As: Lipitor) [facility] Lovastatin 2017-12-08 02:00:00 No 20 mg, Route: PO, Drug form: TAB, Bedtime, Dosing Weight 95.636, kg, Start date: 12/07/17 21:00:00 CDT, Duration: 30 day, Stop date: 01/05/18 21:00:00 CDT [facility] Tricor 2017-12-07 22:00:00 No Notes: (Same as: Tricor) [facility] Folic Acid 1 MG Oral Tablet 2017-12-07 17:18:00 Yes 1 mg, PO, Daily, # 30 tab, 0 Refill(s), Pharmacy: [address] Fenofibrate 145 MG Oral Tablet 2017-12-07 17:18:00 Yes 145 mg = 1 tab, PO, Daily, # 30 tab, 0 Refill(s), Pharmacy: [address] Saline Flush 0.9% 2017-12-07 14:00:00 No Notes: (Same as: BD Posiflush) [facility] Aspirin 81 MG Enteric Coated Tablet 2017-12-07 14:00:00 No Notes: Do not crush or chew. (Same As: Ecotrin) [facility] Fish Oil 2017-12-07 14:00:00 No Notes: (Same as: MaxEPA, [place] 3 fish oil ) Non-Formulary Drug Mingo Weir Ramipril 2017-12-07 14:00:00 No Notes: (Carlos e as:Altace) Mingo Weir carvedilol 2017-12-07 14:00:00 No Notes: Give with food. (Same As: Coreg) Mingo Weir Dextrose 50% Syringe 2017-12-07 04:29:00 No 12.5 gm, 25 mL, Route: IVP, Drug Form: INJ, Dosing Weight 95.636, kg, PRN, PRN Blood Glucose Results, Start date: 12/06/17 23:29:00 CDT, Duration: 30 day, Stop date: 01/05/18 23:28:00 CDT Mingo Weir Glucagon 2017-12-07 04:29:00 No 1 mg, Route: IM, Drug form: PDR/INJ, PRN, Dosing Weight 95.636, kg, PRN Blood Glucose Results, Start date: 12/06/17 23:29:00 CDT, Duration: 30 day, Stop date: 01/05/18 23:28:00 CDT [facility] Insulin Lispro 2017-12-07 04:29:00 No Notes: (Same as: Humalog ) Roll in palms of hands gently; Do not shake `vigorously. "Single Patient Use Only " WASTE: F/P - Black; E - Municipal Trash Bin Stable for 28 days at room temperature. Expires in days from Date [facility] Saline Flush 0.9% 2017-12-07 04:26:00 No Notes: (Same as: BD Posiflush) [facility] Aspirin 2017-12-07 00:33:00 No Notes: Take with food. [facility] Vital Signs Vital Name Observation Time Observation Value Comments Source Systolic (mm Hg) 2019-11-20 14:46:00 Joel peeeduardo Weir Diastolic (mm Hg) 2019-11-20 14:46:00 [facility] [place] Heart Rate 2019-11-20 14:46:00 [facility] Temperature Oral (F) 2019-11-20 14:46:00 98.7 F [facility] Height 2019-11-20 14:46:00 177.8 cm [facility] Weight 2019-11-20 14:46:00 [facility] BMI Calculated 2019-11-20 14:46:00 [facility] [place] Systolic (mm Hg) 2019-08-21 15:33:00 Joel [facility] [place] Diastolic (mm Hg) 2019-08-21 15:33:00 [facility] [place] Heart Rate 2019-08-21 15:33:00 [facility] Temperature Oral (F) 2019-08-21 15:33:00 98.5 F [facility] Height 2019-08-21 15:33:00 177.8 cm [facility] Weight 2019-08-21 15:33:00 [facility] BMI Calculated 2019-08-21 15:33:00 [facility] [place] Systolic (mm Hg) 2019-05-25 21:24:00 Joel [facility] [place] Diastolic (mm Hg) 2019-05-25 21:24:00 [facility] [place] Heart Rate 2019-05-25 21:24:00 [facility] Temperature Oral (F) 2019-05-25 21:24:00 98.5 F [facility] Height 2019-05-25 21:24:00 179.07 cm [facility] Weight 2019-05-25 21:24:00 [facility] BMI Calculated 2019-05-25 21:24:00 [facility] [place] Systolic (mm Hg) 2019-05-15 14:34:00 Jole [facility] [place] Diastolic (mm Hg) 2019-05-15 14:34:00 [facility] [place] Heart Rate 2019-05-15 14:34:00 [facility] Temperature Oral (F) 2019-05-15 14:34:00 98.5 F [facility] Height 2019-05-15 14:34:00 179.07 cm [facility] Weight 2019-05-15 14:34:00 [facility] BMI Calculated 2019-05-15 14:34:00 [facility] [place] Systolic (mm Hg) 2019-02-12 20:14:00 Joel [facility] [place] Diastolic (mm Hg) 2019-02-12 20:14:00 [facility] [place] Heart Rate 2019-02-12 20:14:00 [facility] Temperature Oral (F) 2019-02-12 20:14:00 98.4 F [facility] Height 2019-02-12 20:14:00 179.07 cm [facility] Weight 2019-02-12 20:14:00 [facility] BMI Calculated 2019-02-12 20:14:00 [facility] [place] Weight 2018-11-12 14:55:00 [facility] BMI Calculated 2018-11-12 14:55:00 [facility] [place] Height 2018-11-12 14:55:00 177.8 cm [facility] Temperature Oral (F) 2018-11-12 14:55:00 98.0 F [facility] Heart Rate 2018-11-12 14:55:00 [facility] Systolic (mm Hg) 2018-11-12 14:55:00 Joel [facility] [place] Diastolic (mm Hg) 2018-11-12 14:55:00 [facility] [place] Systolic (mm Hg) 2018-07-31 21:32:00 [facility] [place] Diastolic (mm Hg) 2018-07-31 21:32:00 [facility] [place] Heart Rate 2018-07-31 21:32:00 [facility] Temperature Oral (F) 2018-07-31 21:32:00 97.6 F [facility] Height 2018-07-31 21:32:00 177.8 cm [facility] Weight 2018-07-31 21:32:00 [facility] BMI Calculated 2018-07-31 21:32:00 [facility] [place] Systolic (mm Hg) 2018-04-02 20:25:00 [facility] [place] Diastolic (mm Hg) 2018-04-02 20:25:00 [facility] [place] Temperature Oral (F) 2018-04-02 20:25:00 98.1 F [facility] Heart Rate 2018-04-02 20:25:00 [facility] BMI Calculated 2018-04-02 20:25:00 [facility] Height 2018-04-02 20:25:00 177.8 cm [facility] Weight 2018-04-02 20:25:00 [facility] Systolic (mm Hg) 2017-12-07 16:38:00 Joel [facility] [place] Diastolic (mm Hg) 2017-12-07 16:38:00 [facility] [place] Respitory Rate 2017-12-07 16:38:00 [facility] Heart Rate 2017-12-07 16:38:00 [facility] Temperature Oral (F) 2017-12-07 16:38:00 99.0 F [facility] Systolic (mm Hg) 2017-12-07 12:45:00 Joel [facility] [place] Diastolic (mm Hg) 2017-12-07 12:45:00 [facility] [place] Respitory Rate 2017-12-07 12:45:00 [facility] [place] Heart Rate 2017-12-07 12:45:00 [facility] Temperature Oral (F) 2017-12-07 12:45:00 98.9 F [facility] Temperature Oral (F) 2017-12-07 08:22:00 98.1 F [facility] Heart Rate 2017-12-07 08:22:00 [facility] Respitory Rate 2017-12-07 08:22:00 [facility] [place] Systolic (mm Hg) 2017-12-07 08:22:00 Joel [facility] [place] Diastolic (mm Hg) 2017-12-07 08:22:00 [facility] [place] Weight 2017-12-07 02:23:00 [facility] BMI Calculated 2017-12-07 02:23:00 [facility] [place] Height 2017-12-07 02:23:00 177.8 cm [facility] Weight 2017-12-06 18:37:00 [facility] BMI Calculated 2017-12-06 18:37:00 [facility] [place] Height 2017-12-06 18:37:00 177.8 cm [facility] Procedures Procedure Date / Time Performed Performing Clinician [facility] e CT of abdomen and pelvis without contrast 2019-05-07 00:00:0 0 SETH MENDOZA [facility] Diabetic retinal eye exam<sup>1</sup> 2018-03-12 05:00:00 [facility] Colonoscopy<sup>2</sup> 2015-06-24 00:00:00 [facility] [place] Construction of urostomy<sup>3</sup> 2005-06-24 06:00:00 [facility] Cataract surgery [facility] Prostatectomy [facility] Encounters Start Date/Time End Date/Time Encounter Type Ad[facility] Encounter ID Source 2020-01-27 13:28:55 2020-01-28 13:28:55 Outpatient [facility] [id number] 2019-12-01 10:55:11 2019-12-02 10:55:11 Outpatient [facility] [id number] 2019-11-24 18:08:06 2019-11-25 18:08:06 Outpatient [facility] [id number] 2019-11-20 09:30:00 2019-11-20 23:59:59 Outpatient Krystina Wolff [facility] [id number] 2019-08-24 11:53:09 2019-08-25 11:53:09 Outpatient [facility] [id number] 2019-08-24 16:15:00 2019-08-24 16:15:00 Outpatient Kirk Wolffhanadrien Robertoe [facility] [id number] 2019-08-21 09:30:00 2019-08-21 23:59:59 Outpatient Kirk Wolffhanadrien Robertoe [facility] [id number] 2019-07-07 09:07:36 2019-07-08 23:59:59 Outpatient [facility] [id number] 2019-05-29 18:36:56 2019-05-30 18:36:56 Outpatient [facility] [id number] 2019-05-25 15:00:00 2019-05-25 23:59:59 Outpatient Krystina Wolff [facility] [id number] 2019-05-18 07:58:29 2019-05-19 07:58:29 Outpatient [facility] [id number] 2019-05-15 08:30:00 2019-05-15 23:59:59 Outpatient Krystina Wolff [facility] [id number] 2019-05-07 21:17:00 2019-05-08 01:06:00 Departed Emergency Room 1 SETH MENDOZA [facility] [id number] [facility] 2019-05-01 11:32:22 2019-05-02 23:59:59 Outpatient [facility] [id number] 2019-02-16 19:39:34 2019-02-17 19:39:34 Outpatient [facility] [id number] 2019-02-12 15:15:00 2019-02-12 23:59:59 Outpatient Krystina Wolff [facility] [id number] 2018-11-14 09:50:33 2018-11-15 09:50:33 Outpatient [facility] [id number] 2018-11-12 09:30:00 2018-11-12 23:59:59 Outpatient Krystina Wolff [facility] [id number] 2018-11-04 08:30:00 2018-11-04 08:30:00 Outpatient Krystina Wolff [facility] [id number] 2018-10-31 09:00:00 2018-10-31 09:00:00 Outpatient Krystina Wolff [facility] [id number] 2018-07-31 15:15:00 2018-07-31 23:59:59 Outpatient Allison Hoffmannkhalif Badillo [facility] [id number] 2018-06-11 15:19:00 2018-06-12 23:59:59 Outpatient [facility] [id number] 2018-06-10 09:18:00 2018-06-11 23:59:59 Outpatient [facility] [id number] 2018-06-04 10:45:00 2018-06-05 23:59:59 Outpatient [facility] [id number] 2018-05-01 16:27:00 2018-05-02 23:59:59 Outpatient [facility] [id number] 2018-04-02 15:15:00 2018-04-02 23:59:59 Outpatient Allison Hoffmannkhalif Badillo [facility] [id number] 2017-12-06 13:27:00 2017-12-07 13:27:00 Outpatient Elias Atwood [facility] [id number] Results Test Description Test Time Test Comments Results Result Comments Source Sodium Level 2019-05-07 23:24:00 Test Item Sodium Level (test code = 2951-2) 138 136-145 [facility] [id number] 23:24:00* Test Item Value Reference Range Interpretation Comments Potassium Level (test code = 2823-3) 3.5 3.5-5.1 [facility] CenterChloride [id number] 23:24:00* Test Item Value Reference Range Interpretation Comments Chloride Level (test code = 2075-0) 103 98-107 [facility] Center[facility] Dioxide [id number] 23:24:00* Test Item Value Reference Range Interpretation Comments Carbon Dioxide Level (test code = 2028-9) 23 22-29 [facility] CenterAnion [id number] 23:24:00* Test Item Value Reference Range Interpretation Comments Anion Gap (test code = 44775-5) 15.5 8-16 [facility] Urea [id number] 23:24:00* Test Item Value Reference Range Interpretation Comments Blood Urea Nitrogen (test code = 3094-0) 14 7-26 [facility] CenterCreatinine2019-11-14 23:24:00* Test Item Value Reference Range Interpretation Comments Creatinine (test code = 2160-0) 1.15 0.72-1.25 [facility] CenterBUN/Creatinine [id number] 23:24:00* Test Item Value Reference Range Interpretation Comments BUN/Creatinine Ratio (test code = 3097-3) 12 12-16 [facility] Center[facility]at Glomerular Filtration Rate 2019-05-07 23:24:00* Test Item Value Reference Range Interpretation Comments Estimat Glomerular Filtration Rate (test code = 227385732) > 60 >60 Ranges were taken from the National Kidney Disease Education Program and the [facility] Foundation literature.Reference ranges:60 or greater: [id number] ( for 3 consecutive months): Chronic kidney disease 15 or less: Kidney failurePermian [facility] Medical CenterGlucose [id number] 23:24:00* Test Item Value Reference Range Interpretation Comments Glucose Level (test code = PXU9512) 173 74-118 H [facility] CenterCalcium [id number] 23:24:00* Test Item Value Reference Range Interpretation Comments Calcium Level (test code = 97718-7) 9.6 8.4-10.2 [facility] Center[facility] [id number] 23:20:00* Test Item Value Reference Range Interpretation Comments Urine WBC (test code = 5821-4) >50 0-5 H [facility] Center[facility] [id number] 23:20:00* Test Item Value Reference Range Interpretation Comments Urine RBC (test code = 27547-8) 6-10 0-5 H [facility] Center[facility] [id number] 23:20:00* Test Item Value Reference Range Interpretation Comments Urine Bacteria (test code = 87143-0) MANY NONE H [facility] Center[facility] Epithelial [id number] 23:20:00 * Test Item Value Reference Range Interpretation Comments Urine Epithelial Cells (test code = 01644-6) FEW NONE [facility] Transitional Epithelial Cells 2019-05-07 23:20:00* Test Item Value Reference Range Interpretation Comments Urine Transitional Epithelial Cells (test code = 8249-5) FEW NONE [facility] Renal Epithelial [id number] 23:20:00* Test Item Value Reference Range Interpretation Comments Urine Renal Epithelial Cells (test code = 41850-2) FEW NON E H [facility] CenterCT [facility]/PELVIS [id number] 23:16:00 [facility] [address] [place] [address] Patient Name: SHERI TANNER MR #: [id number] : 1945 Age/Sex: 74/M Req #: [id number] Adm Physician: Ordered by: SETH MENDOZA MD Report #: [id number] Location: ER Room/Bed: Procedure: [id number] CT/CT ABDOMEN/PELVIS WO Exam Date: 05/07/19 Exam Ti me: [id number] REPORT STATUS: Signed C T Abdomen and Pelvis without contrast INDICATION: Flank pain, history of ur ostomy TECHNIQUE: Thin collimation axial images obtained from the diaphrag m to the level of the pubic symphysis without nonionic intravenous contrast. Dose reduction techniques used: Automated exposure control, adjustment of t he mAs and/or kVp according to patient size, standardized low-dose protocol, and/or iterative reconstruction technique. RADIATION DOSE: Total DL P: 688.6 mGy*cm Estimated effective dose: (DLP x 0.015 x size factor) mSv CTDIvol has been reviewed. It is below the limits set by the Radiation Protocol Committee (RPC). COMPARISON: None. ABDOMEN FINDINGS: L carter Bases: Mild atelectasis and bibasilar fibrotic changes. There is prominenc e of the pericardial fat pads. Liver: Normal in attenuation without mass. Gallbladder: Present and contains a calcified gallstone measuring 12 mm. No ductal dilatation. Pancreas: Fatty atrophy without mass or ductal dilata tion. Spleen: Top normal in size. No mass. Adrenal Glands: No evidence for mass. Kidneys: Right: No renal calculus. Large cyst extending into the renal sinus measures 5.6 x 7.7 cm. No hydronephrosis Left: No renal calculus. A cyst in the posterior interpolar cortex measures 3.5 cm. Mild fu llness of the renal collecting system. Aorta: Normal in diameter with diff use calcifications PELVIS FINDINGS: Bowel: Stomach: Normal. Sma ll Bowel: Normal in caliber with normal wall thickness. Large Bowel: Diverticu losis coli. No associated inflammation. Appendix: Normal. Bladder: Absent . Right lower quadrant ileostomy is present without parastomal hernia. Ur eters: The left ureter is mildly distended without surrounding inflammation or evidence of calculus. No calculus in the right ureter. Peritoneum/retroper itoneum: No free fluid or fluid collection. Lymph nodes: No abdominal, pelv ic, or inguinal lymphadenopathy.. Bones: Degenerative changes of the spine. Mild height loss of the L3 vertebral body, likely chronic. Grade 1 retrolisth esis of L3 on L4 without pars defects. Mild degenerative changes of the hips. No lytic or blastic lesions.. IMPRESSION: 1. Status post cystectomy a nd ileal conduit formation. No evidence of renal calculus. Mild nonspecific fu llness of the left renal pelvis and left ureter without doretha hydroureteroneph rosis. Urinary tract infection cannot be excluded. 2. Diverticulosis col i. No evidence for bowel obstruction or inflammation. Normal appendix. 3. Bilateral renal cysts. 4. Cholelithiasis. Normal biliary tree. Signed by: Dr. Evelio Vilchis MD on 05/07/2019 11:23 PM Dictated By: GRAEME VILCHIS MD 22 Transcribed By: AJ on 05/07/192322 COPY TO: SETH MENDOZA MD Urine [id number] 23:11:00* Test Item Value Reference Range Interpretation Comments Urine Color (test code = 5778-6) YELLOW YELLOW [facility] [id number] 23:11:00* Test Item Value Reference Range Interpretation Comments Urine Clarity (test code = 63318-7) CLOUDY CLEAR H [facility] Center[facility] Specific [id number] 23:11:00 * Test Item Value Reference Range Interpretation Comments Urine Specific [place] (test code = 5811-5) 1.010 1.010-1.02 5 [facility] [id number] 23:11:00* Test Item Value Reference Range Interpretation Comments Urine pH (test code = 38229-2) 6 5-7 [facility] Leukocyte [id number] 23:11:00* Test Item Value Reference Range Interpretation Comments Urine Leukocyte Esterase (test code = 16476-5) LARGE NEGATIV E [facility] Center[facility] [id number] 23:11:00* Test Item Value Reference Range Interpretation Comments Urine Nitrite (test code = 47805-1) POSITIVE NEGATIVE [facility] [id number] 23:11:00* Test Item Value Reference Range Interpretation Comments Urine Protein (test code = 81758-3) 1+ NEGATIVE H [facility] Center[facility] Glucose (UA)2019-05-07 23:11:00* Test Item Value Reference Range Interpretation Comments Urine Glucose (UA) (test code = 71623-8) NEGATIVE NEGATIVE [facility] [id number] 23:11:00* Test Item Value Reference Range Interpretation Comments Urine Ketones (test code = 91091-9) NEGATIVE NEGATIVE [facility] [id number] 23:11:00* Test Item Value Reference Range Interpretation Comments Urine Urobilinogen (test code = 90572-7) 0.2 0.2-1 [facility] [id number] 23:11:00* Test Item Value Reference Range Interpretation Comments Urine Bilirubin (test code = 1977-8) NEGATIVE NEGATIVE [facility] Klbzx5894-96-45 23:11:00* Test Item Value Reference Range Interpretation Comments Urine Blood (test code = 19965-4) MODERATE NEGATIVE [facility] Jryuq3332-24-32 23:10:00* Test Item Value Reference Range Interpretation Comments White Blood Count (test code = 6690-2) 9.63 4.8-10.8 [facility] Eplpo2384-41-50 23:10:00* Test Item Value Reference Range Interpretation Comments Red Blood Count (test code = 789-8) 4.99 4.3-5.7 [facility]Hemoglobin2019-11-14 23:10:00* Test Item Value Reference Range Interpretation Comments Hemoglobin (test code = 94710-5) 15.8 14.0-18.0 [facility] CenterHematocrit2019-11-14 23:10:00* Test Item Value Reference Range Interpretation Comments Hematocrit (test code = 4544-3) 43.7 38.2-49.6 [facility] CenterMean Corpuscular Udhbql2558-03-14 23:10:00* Test Item Value Reference Range Interpretation Comments Mean Corpuscular Volume (test code = 787-2) 87.6 81-99 [facility] Corpuscular Hpmvashbpw1038-52-23 23:10:00* Test Item Value Reference Range Interpretation Comments Mean Corpuscular Hemoglobin (test code = 785-6) 31.7 28-32 [facility] CenterMean Corpuscular Hemoglobin Concent 2019-05-07 23:10:00* Test Item Value Reference Range Interpretation Comments Mean Corpuscular Hemoglobin Concent (test code = 786-4) 36.2 31-35 H [facility] CenterRed Cell Distribution Brejz9070-52-20 23:10:00* Test Item Value Reference Range Interpretation Comments Red Cell Distribution Width (test code = 71394-6) 13.3 11.7 -14.4 [facility] CenterPlatelet Cleeu8150-58-90 23:10:00* Test Item Value Reference Range Interpretation Comments Platelet Count (test code = 777-3) 343 140-360 [facility] CenterNeutrophils (%) (Auto)2019-05-07 23:10:00 * Test Item Value Reference Range Interpretation Comments Neutrophils (%) (Auto) (test code = 18642-4) 73.8 38.7-80.0 [facility] CenterLymphocytes (%) (Auto)2019-05-07 23:10:00 * Test Item Value Reference Range Interpretation Comments Lymphocytes (%) (Auto) (test code = 736-9) 15.8 18.0-39.1 L [facility] CenterMonocytes (%) (Auto)2019-05-07 23:10:00* Test Item Value Reference Range Interpretation Comments Monocytes (%) (Auto) (test code = 5905-5) 7.9 4.4-11.3 [facility] CenterEosinophils (%) (Auto)2019-05-07 23:10:00 * Test Item Value Reference Range Interpretation Comments Eosinophils (%) (Auto) (test code = 713-8) 1.1 0.0-6.0 [facility] CenterBasophils (%) (Auto)2019-05-07 23:10:00* Test Item Value Reference Range Interpretation Comments Basophils (%) (Auto) (test code = 706-2) 0.5 0.0-1.0 [facility] CenterIM GRANULOCYTES %2019-05-07 23:10:00* Test Item Value Reference Range Interpretation Comments IM GRANULOCYTES % (test code = IM GRANULOCYTES %) 0.9 0.0- 1.0 [facility] CenterNeutrophils # (Auto)2019-05-07 23:10:00* Test Item Value Reference Range Interpretation Comments Neutrophils # (Auto) (test code = 751-8) 7.1 2.1-6.9 H [facility] CenterLymphocytes # (Auto)2019-05-07 23:10:00* Test Item Value Reference Range Interpretation Comments Lymphocytes # (Auto) (test code = 60378-3) 1.5 1.0-3.2 [facility] CenterMonocytes # (Auto)2019-05-07 23:10:00* Test Item Value Reference Range Interpretation Comments Monocytes # (Auto) (test code = 742-7) 0.8 0.2-0.8 [facility] CenterEosinophils # (Auto)2019-05-07 23:10:00* Test Item Value Reference Range Interpretation Comments Eosinophils # (Auto) (test code = 711-2) 0.1 0.0-0.4 [facility] CenterBasophils # (Auto)2019-05-07 23:10:00* Test Item Value Reference Range Interpretation Comments Basophils # (Auto) (test code = 704-7) 0.1 0.0-0.1 [facility] CenterAbsolute Immature Granulocyte (auto 2019-05-07 23:10:00* Test Item Value Reference Range Interpretation Comments Absolute Immature Granulocyte (auto (kuldeep t code = Absolute Immature Granulocyte (auto) 0.09 0-0.1 [facility] CenterCHEM BXNTT5327-99-93 08:22:0076[facility]annCHEM ZSWIB4411-71-16 08:22:0016[facility]annCHEM VEWMO3541-48-98 08:22:009.6[facility]annCHEM LKDRG8598-13-79 08:22:009.0[facility]annCHEM JCPVF7438-76-39 08:22:000.98[facility]annCHEM GXDCX4170-05-49 08:22:15362 [facility]CHE[facility] TQFYI1894-09-64 08:22:003.6[facility]annCHEM PANEL 2017-12-07 08:22:0027[facility]annCHEM UTZRE5381-77-69 08:22:82901Rhrtmnnr HermannCHEM VKRGL5765-85-82 08:22:41815Xvtcovry ZzzhxptNFLUZRNKSN7079-07-69 08:22:001.7[facility] TphtojdFHLBCUUGJT5573-00-36 08:22:000.4[facility] TFASBOIQMH6066-58-90 08:22:001.7[facility] RegesksFAPKOJUEUC2022-80-41 08:22:004.3 [facility] IrnlnckYXIMFJMJEL3576-02-02 08:22:000.6[facility] HermannHEMATOLOGY 2017-12-07 08:22:000.1[facility] BaclouyUXQJYSWSJH4679-07-57 08:22:009.4[facility] SyiskkzWWJRZFJMDA9250-10-04 08:22:0025.7[facility] OzkddfkPSYMEAACBC3489-48-51 08:22:0062.8[facility] IjyenuoBMFJRZEPME4140-39-85 08:22:0088.2[facility] CGUDMDXIXZ0707-27-20 08:22:0034.5[facility] ZxejwucHRGSSDSSGW8683-00-73 08:22:00* Test Item Value Reference Range Interpretation Comments MCH (test code = MCH) 30.5 pg 27.0-31.0 [facility] TstzmnyFWEFASBAIK8810-84-62 08:22:94188Qzvvublb HermannHEMATOLOGY 2017-12-07 08:22:0014.1[facility] UslgnzpMJPEVYJCSS2008-29-92 08:22:0043.7[facility] UubmztpBNLVZDDGVR7066-99-32 08:22:008.9[facility] OmkfnpsLMMGYIDYGJ5502-93-09 08:22:006.8[facility] SkrifreRTZMRMVJKW7628-93-25 08:22:0015.1[facility] YIPHINCPCH8677-20-44 08:22:004.95[facility] HermannSPECIAL RESJONWUX0494-77-40 08:22:007.1[facility] HermannCARDIAC GPUQTQV3417-49-22 20:30:00<0.02[facility] HermannCARDIAC SBHFBMW3490-09-94 20:30:00<1.0[facility] HermannCARDIAC ENZYMES 2017-12-06 20:30:0058[facility]annCARDIAC YQNOMPZ2808-40-81 20:30:00<1.7 [facility]annCHEM IOTHC2437-34-50 20:30:0061[facility]annCHEM PANEL 2017-12-06 20:30:0010[facility] HermannCHEM DHFWX6428-56-86 20:30:0019[facility]annCHEM SNPRS9157-99-71 20:30:0056[facility]annCHEM KFUUI4424-06-99 20:30:000.8[facility]annCHEM NHKBX4553-08-53 20:30:0013.6[facility]annCHEM ZBDQH1353-89-81 20:30:00* Test Item Value Reference Range Interpretation Comments B/C Ratio (test code = B/C Ratio) 14 1 6-25 [facility]annCHEM DQXBH8639-61-92 20:30:00* Test Item Value Reference Range Interpretation Comments A/G Ratio (test code = A/G Ratio) 1.1 1 0.7-1.6 [facility]annCHEM UENVE9341-88-00 20:30:003.4[facility] HermannCHEM PANEL 2017-12-06 20:30:001.19[facility]annCHEM JVFAA4905-43-41 20:30:89415Rahaonpz HermannCHEM UISNZ4289-70-60 20:30:08925Ddxvjqve HermannCHEM XSFJJ7397-36-26 20:30:0017[facility]annCHEM EKODL8752-69-98 20:30:004.6[facility]annCHEM HSLWU1836-71-68 20:30:33857Palkyexw HermannCHEM PKOJA9091-16-00 20:30:003.9 [facility]annCHEM GKWEH6600-45-53 20:30:007.3[facility] HermannCHEM PANEL 2017-12-06 20:30:009.1[facility] HermannCHEM OHWOR3864-47-57 20:30:0028[facility] FdyuibpRMLPZERWZL5445-57-07 20:30:005.24[facility] TsxujwwIULZEFXQYZ6392-96-30 20:30:0015.8[facility] PlbcvjdVRIHZAHMOR1979-52-25 20:30:008.6[facility] XZZMWISXVH9884-48-51 20:30:00* Test Item Value Reference Range Interpretation Comments MCH (test code = MCH) 30.1 pg 27.0-31.0 [facility] UdebwezZPPPKGEOUH8703-93-42 20:30:0088.6[facility] HermannHEMATOLOGY 2017-12-06 20:30:0046.4[facility] ItvwdxoPHUJFDUMVQ5559-94-54 20:30:0034.0[facility] RgmowzbYFPJMBKMTC5792-07-22 20:30:0014.2[facility] GbvqbubOBHTIAMPUC7885-39-00 20:30:90372Poryitpx FvavupbCLRRVCILQW6465-51-18 20:30:009.3[facility] XLGXTZINBW9003-13-53 20:30:000.1[facility] MasqtdbRLQMIDJGWE6116-97-81 20:30:000.5 [facility] QgrjjfoHUVVDEUGZH9874-70-82 20:30:006.3[facility] HermannHEMATOLOGY 2017-12-06 20:30:000.7[facility] ZmludoeQWDFRYLLQJ2591-86-69 20:30:0072.4[facility] VhbmcjlRUWJWMPOAV6241-27-93 20:30:0020.4[facility] LmaqwbbLLPJHVPKPS5892-83-96 20:30:001.8[facility] CmmrbqhCNAAEZADKH0950-36-17 20:30:006.2[facility] OWSYBCNHLI2286-15-84 20:30:000.2[facility]
--- OUTSIDE RECORDS SUMMARY | 2020-02-06 13:22 | XMS REPORT | Summary of Care ---
Author Author [facility] Organization [facility] Address Unknown Phone Unavailable Care Team Providers Care Ballast Cleaning Operator Name Role Phone Roya Hoffmann PCP Encounter [facility] Encntr_[place](FIN) [phone] Date(s): 07/31/18 - 07/31/18 [facility] [address] [place] [facility] [place] [address]- [phone] Discharge Disposition: Home or Self Care Attending Physician: Roya Hoffmann MD Vital Signs Most recent to 1 oldest [Reference Range]: Height 177.8 cm (07/31/18 3:32 PM) Temperature Oral 97.6 DegF [96.4-99.1 DegF] (07/31/18 3:32 PM) Blood Pressure 153/81 mmHg [90-140/60-90 mmHg] *HI* (07/31/18 3:32 PM) Peripheral Pulse 76 bpm Rate [60-100 bpm] (07/31/18 3:32 PM) Weight 96.364 kg (07/31/18 3:32 PM) Body Mass Index 30.48 m2 (07/31/18 3:32 PM) Problem List Condition Effective Dates Status [...] Never Employment/School Status: Employed. 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 Sexual Sexually active: No. Substance Abuse Use: None. Smoking Status Never smoker; Exposure to T obacco Smoke None; Cigarette Smoking Last 365 Days No; Reg Smoking Cessation Counseli ng No entered on: 02/12/19 Assessment and Plan No data available for this section
--- OUTSIDE RECORDS SUMMARY | 2020-02-06 13:22 | XMS REPORT | Summary of Care ---
Author Author [facility] Organization [facility] Address Unknown Phone Unavailable Care Team Providers Care Refrigerating Machine Operator Name Role Phone RoloLisseth torresthia Aby PCP Encounter [facility] Encntr_alias(FIN) [phone] Date(s): 02/16/19 - 02/17/19 [facility] [address] [facility] [place] [address]- Vital Signs No data available for this [...] Never Employment/School Status: Employed. 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 Sexual Sexually active: No. Substance Abuse Use: None. Smoking Status Never smoker; Exposure to T obacco Smoke None; Cigarette Smoking Last 365 Days No; Reg Smoking Cessation Counseli ng No entered on: 02/12/19 Assessment and Plan No data available for this section
--- OUTSIDE RECORDS SUMMARY | 2020-02-06 13:22 | XMS REPORT | Summary of Care ---
Author Author [facility] Organization [facility] Address Unknown Phone Unavailable Care Team Providers Care Director Information Name Role Phone Krystina Lu PCP [phone] Encounter HQ Trentntr_gray(FIN) [phone] Date(s): 08/24/19 - 08/25/19 [facility] [address] [facility] [place] [address]- Vital Signs No data available for this section Problem List Condition Effective Dates Status Health Status Informan t Benign essential Active HTN(Confirmed) [place] of Active foot(Confirmed) Mixed Active hypertriglyceridemia (Confirmed) History of TIA Active (transient ischemic attack)(Confirmed) Bladder Resolved cancer(Confirmed) Microalbuminuria(Con Active firmed) Pyelonephritis(Confi Resolved rmed) Type 2 diabetes Active [...] Never Employment/School Status: Employed. 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 Sexual Sexually active: No. Substance Abuse Use: None. Smoking Status Never smoker; Exposure to T obacco Smoke None; Cigarette Smoking Last 365 Days No; Reg Smoking Cessation Counseli ng No entered on: 08/21/19 Assessment and Plan No data available for this section
--- OUTSIDE RECORDS SUMMARY | 2020-02-06 13:22 | XMS REPORT | Summary of Care ---
Author Author [facility] Organization [facility] Address Unknown Phone Unavailable Care Team Providers Care Life Manager Name Role Phone Roya Hoffmann PCP Encounter [facility] Encntr_[place](FIN) [phone] Date(s): 11/04/18 - 11/04/18 [facility] [address] [place] [address]- Attending Physician: Krystina Lu MD Vital Signs [...]
--- OUTSIDE RECORDS SUMMARY | 2020-02-06 13:22 | XMS REPORT | Summary of Care ---
Author Author [facility] Organization [facility] Address Unknown Phone Unavailable Encounter PATSY David(FERNIE) [id number] Date(s): 12/06/17 - 12/07/17 [facility] [address] [place] [address]- [phone] Discharge Disposition: Home or Self Care Attending Physician: Elias Atwood MD Admitting Physician: Elias Atwood MD Vital Signs 1 2 3 Most recent to oldest [Reference Range]: 177.8 cm (12/06/17 9:23 PM) 177.8 cm (12/06/17 1:37 PM) Height 99.0 DegF (12/07/17 11:38 AM) 98.9 DegF (12/07/17 7:45 AM) 98.1 DegF (12/07/17 3:22 AM) Temperature Oral [96.4-99.1 DegF] 112/63 mmHg (12/07/17 11:38 AM) 144/71 mmHg *HI* (12/07/17 7:45 AM) 121/69 mmHg (12/07/17 3:22 AM) Blood Pressure [90-140/60-90 mmHg] 17 BRMIN (12/07/17 11:38 AM) 17 BRMIN (12/07/17 7:45 AM) 18 BRMIN (12/07/17 3:22 AM) Respiratory Rate [14-20 BRMIN] 77 bpm (12/07/17 11:38 AM) 71 bpm (12/07/17 7:45 AM) 71 bpm (12/07/17 3:22 AM) Peripheral Pulse Rate [60-100 bpm] 95.636 kg (12/06/17 9:23 PM) 95.455 kg (12/06/17 1:37 PM) Weight 30.25 m2 (12/06/17 9:23 PM) 30.2 m2 (12/06/17 1:37 PM) Body Mass Index Problem List Condition Effective Dates Status Health Status Informan t Benign essential Active HTN(Confirmed) Mixed Active hypertriglyceridemia (Confirmed) Bladder Resolved cancer(Confirmed) Microalbuminuria(Con Active firmed) Type 2 diabetes Active mellitus(Confirmed) Presence of Active urostomy(Confirmed) Allergies, Adverse Reactions, Alerts Substance Reaction Severity Status sulfa drugs Active Medications aspirin 325 mg, 1 tab, Route: PO, Drug form: TAB, ONCE, Dosing Weight 95.455, kg, Priori ty: STAT, Start date: 12/06/17 19:33:00 CDT, Stop date: 12/06/17 19:33:00 CDT Notes: Take with food. Start Date: 12/06/17 Stop Date: 12/06/17 Status: Completed aspirin 81 mg tablet, enteric coated 81 mg, 1 tab, Route: PO, Drug form: ECTAB, Q24H, Dosing Weight 95.636, kg, Start date: 12/07/17 9:00:00 CDT, Duration: 30 day, Stop date: 01/05/18 9:00:00 CDT Notes: Do not crush or chew.(Same As: Ecotrin) Start Date: 12/07/17 Stop Date: 12/07/17 Status: Discontinued carvedilol 6.25 mg, 2 tab, Route: PO, Drug form: TAB, BID, Dosing Weight 95.636, kg, Start date: 12/07/17 9:00:00 CDT, Duration: 30 day, Stop date: 01/05/18 21:00:00 CDT Notes: Give with food. (Same As: Coreg) Start Date: 12/07/17 Stop Date: 12/07/17 Status: Discontinued Dextrose 50% Syringe 12.5 gm, 25 mL, Route: IVP, Drug Form: INJ, Dosing Weight 95.636, kg, PRN, PRN B lood Glucose Results, Start date: 12/06/17 23:29:00 CDT, Duration: 30 day, Stop date: 01/05/18 23:28:00 CDT Start Date: 12/06/17 Stop Date: 12/07/17 Status: Discontinued Dextrose 50% Syringe 25 gm, 50 mL, Route: IVP, Drug Form: INJ, Dosing Weight 95.636, kg, PRN, PRN Blo od Glucose Results, Start date: 12/06/17 23:29:00 CDT, Duration: 30 day, Stop da te: 01/05/18 23:28:00 CDT Start Date: 12/06/17 Stop Date: 12/07/17 Status: Discontinued fenofibrate 145 mg oral tablet 145 mg = 1 tab, PO, Daily, # 30 tab, 0 Refill(s), Pharmacy: [facility] Start Date: 12/07/17 Status: Ordered Fish Oil 1,000 mg, 1 cap, Route: PO, Drug form: CAP, TID, Dosing Weight 95.636, kg, Start date: 12/07/17 9:00:00 CDT, Duration: 30 day, Stop date: 01/05/18 17:00:00 CDT Notes: (Same as: MaxEPA, [place] 3 fish oil )Non-Formulary Drug Start Date: 12/07/17 Stop Date: 12/07/17 Status: Discontinued folic acid 1 mg, 1 tab, Route: PO, Drug form: TAB, Daily, Dosing Weight 95.636, kg, Start d ate: 12/08/17 9:00:00 CDT, Duration: 30 day, Stop date: 01/06/18 9:00:00 CDT Notes: (Same as: Folvite) Start Date: 12/08/17 Stop Date: 12/07/17 Status: Canceled folic acid 1 mg oral tablet 1 mg, PO, Daily, # 30 tab, 0 Refill(s), Pharmacy: [facility] Start Date: 12/07/17 Status: Ordered glucagon 1 mg, Route: IM, Drug form: PDR/INJ, PRN, Dosing Weight 95.636, kg, PRN Blood Gl ucose Results, Start date: 12/06/17 23:29:00 CDT, Duration: 30 day, Stop date: 0 01/05/18 23:28:00 CDT Start Date: 12/06/17 Stop Date: 12/07/17 Status: Discontinued insulin lispro 4 unit, 0.04 mL, Route: SUB-Q, Drug form: SOLN, Sliding Scale, Dosing Weight 95. 636, kg, PRN Blood Glucose Results, Start date: 12/06/17 23:29:00 CDT, Duration: 30 day, Stop date: 01/05/18 23:28:00 CDT Notes: (Same as: Humalog ) Roll in palms of hands gently; Do not shake `vigorou sly. "Single Patient Use Only " WASTE: F/P - Black; E - [facility] [address] [address] able for 28 days at room temperature.Expires in days from Da te Start Date: 12/06/17 Stop Date: 12/07/17 Status: Discontinued insulin lispro 5 unit, 0.05 mL, Route: SUB-Q, Drug form: SOLN, Sliding Scale, Dosing Weight 95. 636, kg, PRN Blood Glucose Results, Start date: 12/06/17 23:29:00 CDT, Duration: 30 day, Stop date: 01/05/18 23:28:00 CDT Notes: (Same as: Humalog ) Roll in palms of hands gently; Do not shake `vigorou sly. "Single Patient Use Only " WASTE: F/P - Black; E - [facility] [address] able for 28 days at room temperature.Expires in days from Da te Start Date: 12/06/17 Stop Date: 12/07/17 Status: Discontinued insulin lispro 2 unit, 0.02 mL, Route: SUB-Q, Drug form: SOLN, Sliding Scale, Dosing Weight 95. 636, kg, PRN Blood Glucose Results, Start date: 12/06/17 23:29:00 CDT, Duration: 30 day, Stop date: 01/05/18 23:28:00 CDT Notes: (Same as: Humalog ) Roll in palms of hands gently; Do not shake `vigorou sly. "Single Patient Use Only " WASTE: F/P - Black; E - [facility] [address] able for 28 days at room temperature.Expires in days from Da te Start Date: 12/06/17 Stop Date: 12/07/17 Status: Discontinued insulin lispro 3 unit, 0.03 mL, Route: SUB-Q, Drug form: SOLN, Sliding Scale, Dosing Weight 95. 636, kg, PRN Blood Glucose Results, Start date: 12/06/17 23:29:00 CDT, Duration: 30 day, Stop date: 01/05/18 23:28:00 CDT Notes: (Same as: Humalog ) Roll in palms of hands gently; Do not shake `vigorou sly. "Single Patient Use Only " WASTE: F/P - Black; E - [facility] [address] able for 28 days at room temperature.Expires in days from Da te Start Date: 12/06/17 Stop Date: 12/07/17 Status: Discontinued insulin lispro 1 unit, 0.01 mL, Route: SUB-Q, Drug form: SOLN, Sliding Scale, Dosing Weight 95. 636, kg, PRN Blood Glucose Results, Start date: 12/06/17 23:29:00 CDT, Duration: 30 day, Stop date: 01/05/18 23:28:00 CDT Notes: (Same as: Humalog ) Roll in palms of hands gently; Do not shake `vigorou sly. "Single Patient Use Only " WASTE: F/P - Black; E - [facility] [address] able for 28 days at room temperature.Expires in days from Da te Start Date: 12/06/17 Stop Date: 12/07/17 Status: Discontinued Lipitor 10 mg, 1 tab, Route: PO, Drug form: TAB, Bedtime, Start date: 12/07/17 21:00:00 CDT, Duration: 30 day, Stop date: 01/05/18 21:00:00 CDT Notes: (Same As: Lipitor) Start Date: 12/07/17 Stop Date: 12/07/17 Status: Canceled lovastatin 20 mg, Route: PO, Drug form: TAB, Bedtime, Dosing Weight 95.636, kg, Start date: 12/07/17 21:00:00 CDT, Duration: 30 day, Stop date: 01/05/18 21:00:00 CDT Start Date: 12/07/17 Stop Date: 12/06/17 Status: Deleted ramipril 10 mg, 2 cap, Route: PO, Drug form: CAP, Daily, Dosing Weight 95.636, kg, Start date: 12/07/17 9:00:00 CDT, Duration: 30 day, Stop date: 01/05/18 9:00:00 CDT Notes: (Same as:Altace) Start Date: 12/07/17 Stop Date: 12/07/17 Status: Discontinued Saline Flush 0.9% 10 ml, Route: IVP, Drug Form: INJ, Dosing Weight 95.636, kg, Q12H, Start date: 0 12/07/17 9:00:00 CDT, Duration: 30 day, Stop date: 01/05/18 21:00:00 CDT Notes: (Same as: BD Posiflush) Start Date: 12/07/17 Stop Date: 12/07/17 Status: Discontinued Saline Flush 0.9% 10 ml, Route: IVP, Drug Form: INJ, Dosing Weight 95.636, kg, PRN, PRN Line Flush , Start date: 12/06/17 23:26:00 CDT, Duration: 30 day, Stop date: 01/05/18 23:25 :00 CDT Notes: (Same as: BD Posiflush) Start Date: 12/06/17 Stop Date: 12/07/17 Status: Discontinued TriCor 145 mg, 1 tab, Route: PO, Drug form: TAB, Dinner, Dosing Weight 95.636, kg, Star t date: 12/07/17 17:00:00 CDT, Duration: 30 day, Stop date: 01/05/18 17:00:00 CD T Notes: (Same as: Tricor) Start Date: 12/07/17 Stop Date: 12/07/17 Status: Canceled Results ELECTROLYTES Most recent to 1 2 oldest [Reference Range]: Sodium Lvl [135-145 142 mEq/L 143 mEq/L mEq/L] (12/07/17 3:22 AM) (12/06/17 3:30 PM) Potassium Lvl 3.6 mEq/L 4.6 mEq/L [3.5-5.1 mEq/L] (12/07/17 3:22 AM) (12/06/17 3:30 PM) Chloride Lvl [95-109 109 mEq/L 106 mEq/L mEq/L] (12/07/17 3:22 AM) (12/06/17 3:30 PM) CO2 [24-32 mEq/L] 27 mEq/L 28 mEq/L (12/07/17 3:22 AM) (12/06/17 3:30 PM) AGAP [10.0-20.0 9.6 mEq/L 13.6 mEq/L mEq/L] *LOW* (12/06/17 3:30 PM) (12/07/17 3:22 AM) CHEM PANEL Most recent to 1 2 oldest [Reference Range]: Creatinine Lvl 0.98 mg/dL 1.19 mg/dL [0.50-1.40 mg/dL] (12/07/17 3:22 AM) (12/06/17 3:30 PM) eGFR 76 mL/min/1.73m2 1 61 mL/min/1.73m2 2 *NA* *NA* (12/07/17 3:22 AM) (12/06/17 3:30 PM) BUN [7-22 mg/dL] 16 mg/dL 17 mg/dL (12/07/17 3:22 AM) (12/06/17 3:30 PM) B/C Ratio [6-25] 14 (12/06/17 3:30 PM) Glucose Lvl [70-99 133 mg/dL 201 mg/dL mg/dL] *HI* *HI* (12/07/17 3:22 AM) (12/06/17 3:30 PM) Total Protein 7.3 g/dL [6.4-8.4 g/dL] (12/06/17 3:30 PM) Albumin Lvl [3.5-5.0 3.9 g/dL g/dL] (12/06/17 3:30 PM) Globulin [2.7-4.2 3.4 g/dL g/dL] (12/06/17 3:30 PM) A/G Ratio [0.7-1.6] 1.1 (12/06/17 3:30 PM) Calcium Lvl 9.0 mg/dL 9.1 mg/dL [8.5-10.5 mg/dL] (12/07/17 3:22 AM) (12/06/17 3:30 PM) ALT [0-65 unit/L] 19 unit/L (12/06/17 3:30 PM) AST [0-37 unit/L] 10 unit/L (12/06/17 3:30 PM) Alk Phos [39-136 56 unit/L unit/L] (12/06/17 3:30 PM) Bili Total [0.2-1.3 0.8 mg/dL mg/dL] (12/06/17 3:30 PM) 1Result Comment: The eGFR is calculated using the [...] from the National Kidney Disease Education Program ( NKDEP) which additionally recommends that when the eGFR is used in patients with extremes of body mass index for purposes of drug dosing, the eGFR should be mul tiplied by the estimated BMI. 2Result Comment: The eGFR is calculated using the [...] from the National Kidney Disease Education Program ( NKDEP) which additionally recommends that when the eGFR is used in patients with extremes of body mass index for purposes of drug dosing, the eGFR should be mul tiplied by the estimated BMI. CARDIAC ENZYMES Most recent to 1 2 oldest [Reference Range]: Total CK [12-191 58 unit/L unit/L] (12/06/17 3:30 PM) CK MB [0.5-3.6 <1.0 ng/mL ng/mL] (12/06/17 3:30 PM) CK MB Index <1.7 [0.0-2.5] (12/06/17 3:30 PM) Troponin-I <0.02 ng/mL [0.00-0.40 ng/mL] (12/06/17 3:30 PM) SPECIAL CHEMISTRY Most recent to 1 2 oldest [Reference Range]: Hgb A1C [<=5.6 %] 7.1 % *HI* (12/07/17 3:22 AM) HEMATOLOGY Most recent to 1 2 oldest [Reference Range]: WBC [3.7-10.4 K/CMM] 6.8 K/CMM 8.6 K/CMM (12/07/17 3:22 AM) (12/06/17 3:30 PM) RBC [4.70-6.10 4.95 M/CMM 5.24 M/CMM M/CMM] (12/07/17 3:22 AM) (12/06/17 3:30 PM) Hgb [14.0-18.0 g/dL] 15.1 g/dL 15.8 g/dL (12/07/17 3:22 AM) (12/06/17 3:30 PM) Hct [42.0-54.0 %] 43.7 % 46.4 % (12/07/17 3:22 AM) (12/06/17 3:30 PM) MCV [80.0-94.0 fL] 88.2 fL 88.6 fL (12/07/17 3:22 AM) (12/06/17 3:30 PM) MCH [27.0-31.0 pg] 30.5 pg 30.1 pg (12/07/17 3:22 AM) (12/06/17 3:30 PM) MCHC [32.0-36.0 34.5 g/dL 34.0 g/dL g/dL] (12/07/17 3:22 AM) (12/06/17 3:30 PM) RDW [11.5-14.5 %] 14.1 % 14.2 % (12/07/17 3:22 AM) (12/06/17 3:30 PM) MPV [7.4-10.4 fL] 8.9 fL 9.3 fL (12/07/17 3:22 AM) (12/06/17 3:30 PM) Platelet [133-450 229 K/CMM 263 K/CMM K/CMM] (12/07/17 3:22 AM) (12/06/17 3:30 PM) Segs [45.0-75.0 %] 62.8 % 72.4 % (12/07/17 3:22 AM) (12/06/17 3:30 PM) Lymphocytes 25.7 % 20.4 % [20.0-40.0 %] (12/07/17 3:22 AM) (12/06/17 3:30 PM) Monocytes [2.0-12.0 9.4 % 6.3 % %] (12/07/17 3:22 AM) (12/06/17 3:30 PM) Eosinophils [0.0-4.0 1.7 % 0.7 % %] (12/07/17 3:22 AM) (12/06/17 3:30 PM) Basophils [0.0-1.0 0.4 % 0.2 % %] (12/07/17 3:22 AM) (12/06/17 3:30 PM) Segs-Bands # 4.3 K/CMM 6.2 K/CMM [1.5-8.1 K/CMM] (12/07/17 3:22 AM) (12/06/17 3:30 PM) Lymphocytes # 1.7 K/CMM 1.8 K/CMM [1.0-5.5 K/CMM] (12/07/17 3:22 AM) (12/06/17 3:30 PM) Monocytes # [0.0-0.8 0.6 K/CMM 0.5 K/CMM K/CMM] (12/07/17 3:22 AM) (12/06/17 3:30 PM) Eosinophils # 0.1 K/CMM 0.1 K/CMM [0.0-0.5 K/CMM] (12/07/17 3:22 AM) (12/06/17 3:30 PM) Immunizations No data available for this section Procedures Procedure Date Related Diagnosis Body Site Status Construction of urostomy1 06/24/05 Completed Prostatectomy Completed 1Estimated date. This was done for history of bladder cancer. He reports prostate was removed at the same time Social History Social History Type Response Substance Abuse Use: None. Sexual Sexually active: No. Employment/School Status: Employed. Alcohol Never Smoking Status Never smoker; Exposure to T obacco Smoke None; Cigarette Smoking Last 365 Days No; Reg Smoking Cessation Counseli ng No entered on: 12/06/17 Assessment and Plan No data available for this section
--- OUTSIDE RECORDS SUMMARY | 2020-02-06 13:22 | XMS REPORT | Summary of Care ---
Author Author [facility] Organization [facility] Address Unknown Phone Unavailable Care Team Providers Care Circle Edger Name Role Phone Krystina Lu PCP Encounter HQ Encntr_[place](FIN) [id number] Date(s): 08/24/19 - 08/24/19 [facility] [address] [place] [facility] [place] [facility] [address]- [phone] Attending Physician: Krystina Lu MD Vital Signs No data available for this section Problem List Condition Effective Dates Status Health Status Informan t Benign essential Active HTN(Confirmed) [place] of Active foot(Confirmed) Mixed Active hypertriglyceridemia (Confirmed) [...] Employment/School Status: Employed. 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 Sexual Sexually active: No. Substance Abuse Use: None. Smoking Status Never smoker; Exposure to T obacco Smoke None; Cigarette Smoking Last 365 Days No; Reg Smoking Cessation Counseli ng No entered on: 08/21/19 Assessment and Plan No data available for this section
--- OUTSIDE RECORDS SUMMARY | 2020-02-06 13:22 | XMS REPORT | Summary of Care ---
Author Author [facility] Organization [facility] Address Unknown Phone Unavailable Care Team Providers Care Senior Packaging Engineer Name Role Phone Roya Hoffmann PCP Encounter HQ Ashwin_gray(FIN) [id number] Date(s): 11/12/18 - 11/12/18 [facility] [address] [place] [address]- Discharge Disposition: Home or Self Care Attending Physician: Krystina Lu MD Vital Signs Most recent to 1 oldest [Reference Range]: Height 177.8 cm (11/12/18 9:55 AM) Temperature Oral 98.0 DegF [96.4-99.1 DegF] (11/12/18 9:55 AM) Blood Pressure 120/79 mmHg [90-140/60-90 mmHg] (11/12/18 9:55 AM) Peripheral Pulse 63 bpm Rate [60-100 bpm] (11/12/18 9:55 AM) Weight 94.545 kg (11/12/18 9:55 AM) Body Mass Index 29.91 m2 (11/12/18 9:55 AM) Problem List Condition Effective Dates Status Health Status Informan t Benign essential Active HTN(Confirmed) Mixed Active hypertriglyceridemia (Confirmed) History of TIA Active (transient ischemic attack)(Confirmed) Bladder Resolved cancer(Confirmed) Microalbuminuria(Con Active firmed) Type 2 diabetes Active mellitus(Confirmed) Presence of Active urostomy(Confirmed) Allergies, Adverse Reactions, Alerts Substance Reaction Severity Status sulfa drugs Active NKFA Active Medications FreeStyle Precision Amrit Blood Glucose Test Strips 1 ea, MISC, Daily, E11.9, # 100 ea, Not insulin dependent, Does not use insulin pump, Last DM eval date 11/12/18, 3 Refill(s), Pharmacy: [facility] [place] [phone] Start Date: 11/12/18 Stop Date: 11/11/22 Status: Ordered Results No data available for [...] No. Employment/School Status: Employed. 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 Alcohol Never Smoking Status Never smoker; Exposure to T obacco Smoke None; Cigarette Smoking Last 365 Days No; Reg Smoking Cessation Counseli ng No entered on: 11/12/18 Assessment and Plan No data available for this section
--- OUTSIDE RECORDS SUMMARY | 2020-02-06 13:22 | XMS REPORT | Summary of Care ---
Author Author [facility] Organization [facility] Address Unknown Phone Unavailable Care Team Providers Care Clinical Program Coordinator Name Role Phone Krystina Lu PCP Encounter HQ Encntr_gray(FIN) [id number] Date(s): 08/21/19 - 08/21/19 [facility] [address] [facility] [place] [address]- [phone] Discharge Disposition: Home or Self Care Attending Physician: Krystina Lu MD Vital Signs Most recent to 1 oldest [Reference Range]: Height 177.8 cm (08/21/19 9:33 AM) Temperature Oral 98.5 DegF [96.4-99.1 DegF] (08/21/19 9:33 AM) Blood Pressure 128/84 mmHg [90-140/60-90 mmHg] (08/21/19 9:33 AM) Peripheral Pulse 68 bpm Rate [60-100 bpm] (08/21/19 9:33 AM) Weight 93.636 kg (08/21/19 9:33 AM) Body Mass Index 29.62 m2 (08/21/19 9:33 AM) Problem List Condition Effective Dates Status Health Status Informan t Benign essential Active HTN(Confirmed) [place] of Active foot(Confirmed) Mixed Active hypertriglyceridemia (Confirmed) [...] Never Employment/School Status: Employed. 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 Sexual Sexually active: No. Substance Abuse Use: None. Smoking Status Never smoker; Exposure to T obacco Smoke None; Cigarette Smoking Last 365 Days No; Reg Smoking Cessation Counseli ng No entered on: 08/21/19 Assessment and Plan No data available for this section
--- OUTSIDE RECORDS SUMMARY | 2020-02-06 13:22 | XMS REPORT | Summary of Care ---
Author Author [facility] Organization [facility] Address Unknown Phone Unavailable Care Team Providers Care Chief Engineer Name Role Phone Roya Hoffmann PCP Encounter HQ Joanar_gray(FIN) [id number] Date(s): 02/12/19 - 02/12/19 [facility] [address] [place] [facility] [place] [address]- Discharge Disposition: Home or Self Care Attending Physician: Krystina Lu MD Vital Signs Most recent to 1 oldest [Reference Range]: Height 179.07 cm (02/12/19 3:14 PM) Temperature Oral 98.4 DegF [96.4-99.1 DegF] (02/12/19 3:14 PM) Blood Pressure 143/82 mmHg [90-140/60-90 mmHg] *HI* (02/12/19 3:14 PM) Peripheral Pulse 67 bpm Rate [60-100 bpm] (02/12/19 3:14 PM) Weight 95.455 kg (02/12/19 3:14 PM) Body Mass Index 29.77 m2 (02/12/19 3:14 PM) Problem List Condition Effective Dates Status [...] Employment/School Status: Employed. 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 Sexual Sexually active: No. Substance Abuse Use: None. Smoking Status Never smoker; Exposure to T obacco Smoke None; Cigarette Smoking Last 365 Days No; Reg Smoking Cessation Counseli ng No entered on: 02/12/19 Assessment and Plan No data available for this section
--- OUTSIDE RECORDS SUMMARY | 2020-02-06 13:22 | XMS REPORT | Summary of Care ---
Author Author [facility] Organization [facility] Address Unknown Phone Unavailable Care Team Providers Care Antique Dealer Name Role Phone RolomelissaRoya PCP Encounter HQ Joanar_gray(FIN) [id number] Date(s): 05/01/19 - 05/02/19 [facility] [address] [place] [facility] [place] [address]- Vital Signs No data available for this [...] 180 tab, 3 Refill(s), Pharmacy: [facility] [id number] Start Date: 05/02/19 Stop Date: 04/26/20 Status: Ordered Results No data available for [...] Never Employment/School Status: Employed. 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 Sexual Sexually active: No. Substance Abuse Use: None. Smoking Status Never smoker; Exposure to T obacco Smoke None; Cigarette Smoking Last 365 Days No; Reg Smoking Cessation Counseli ng No entered on: 02/12/19 Assessment and Plan No data available for this section
[2020-02-06] MEDS ORDERED: MORPHINE SULFATE 2 MG/ML SYR 1ML IV PRN (13:30)
[2020-02-06] MEDS ORDERED: NITROGLYCERIN 0.4 MG SUBL SL PRN (13:30)
[2020-02-06] MEDS ORDERED: ONDANSETRON HCL INJ 2MG/ML 2ML 2 MG/ML VIAL IV PRN (13:30)
--- NOTE | 2020-02-06 13:34 | Emergency Department Note ---
History of Present Illnes History of Present Illness Chief Complaint: Chest Pain History of Present Illness This is a 74 year old male chest pressure not pain, pt states months of this feeling. states recent cardiology work up with abnormal stress test with dr soto alex...pt [id number]. ambulatory. denies sob. non radiating. no diaphoresis, no n/v. pt states hx of cad, but no stent placement and no heart cath ever. Historian: Patient Arrival Mode: Car Produce Manager Required: No Onset (how long ago): month(s) (WORSE TODAY AND LASTED 2 HRS) Location: CHEST Quality: PRESSURE Radiation: Reports non-radiation Severity: moderate Onset quality: gradual Timing of current episode: intermittent Progression: waxing and waning Chronicity: recurrent Context: Denies recent illness Relieving factors: none Exacerbating factors: none Associated symptoms: Reports denies other symptoms Treatments prior to arrival: none Past Medical/Family History Physician Review I have reviewed the patient's past medical and family history. Any updates have been documented here. Past Medical History Recent Fever: No Clinical Suspicion of Infectio: No New/Unexplained Change in Ment: No Past Medical History: Hypertension, Diabetes, CAD, Cancer Other Medical History: Bladder cancer prostate removed as well Past Surgical History: T&A Other Surgery: Urostomy prostate removed Social History Smoking Cessation: Unknown if ever smoked Counseling Performed: No Alcohol Use: None Any Illegal Drug Use: No TB Exposure/Symptoms: No Physically hurt or threatened: No Family History Family history of heart diseas: No Other Last Tetanus: UNK Any Pre-Existing Lines (PICC,: No Review of Systems Review of Systems Constitutional: Reports no symptoms EENTM: Reports no symptoms Cardiovascular: Reports as per HPI Respiratory: Reports no symptoms Gastrointestinal: Reports no symptoms Genitourinary: Reports no symptoms Musculoskeletal: Reports no symptoms Integumentary: Reports no symptoms Neurological: Reports no symptoms Psychological: Reports no symptoms Endocrine: Reports no symptoms Hematological/Lymphatic: Reports no symptoms Physical Exam Related Data Allergies: Coded Allergies: Sulfa (Sulfonamide Antibiotics) (Verified Allergy, Unknown, 05/07/19) Triage Vital Signs Vital Signs Date Time Temp Pulse Resp B/P (MAP) Pulse Ox O2 Delivery O2 Flow Rate FiO2 02/06/20 11:50 98.3 60 14 145/67 98 Room Air Vital signs reviewed: Yes Physical Exam CONSTITUTIONAL Constitutional: Present well-developed, Present well-nourished HENT HENT: Present normocephalic, Present atraumatic, Present oropharynx clear/moist, Present nose normal HENT L/R: Present left ext ear normal, Present right ext ear normal EYES Eyes: Reports PERRL, Reports conjunctivae normal NECK Neck: Present ROM normal PULMONARY Pulmonary: Present effort normal, Present breath sounds normal CARDIOVASCULAR Cardiovascular: Present regular rhythm, Present heart sounds normal, Present capillary refill normal, Present normal rate GASTROINTESTINAL Abdominal: Present soft, Present nontender, Present bowel sounds normal GENITOURINARY Genitourinary: Present exam deferred SKIN Skin: Present warm, Present dry MUSCULOSKELETAL Musculoskeletal: Present ROM normal NEUROLOGICAL Neurological: Present alert, Present oriented x 3, Present no gross motor or sensory deficits PSYCHOLOGICAL Psychological: Present mood/affect normal, Present judgement normal Results Laboratory Result Diagram: 02/06/20 1206 02/06/20 1206 Laboratory Laboratory Tests Test 02/06/20 12:06 White Blood Count 6.15 x10e3/uL (4.8-10.8) Red Blood Count 5.16 x10e6/uL (4.3-5.7) Hemoglobin 15.6 g/dL (14.0-18.0) Hematocrit 45.4 % (38.2-49.6) Mean Corpuscular Volume 88.0 fL (81-99) Mean Corpuscular Hemoglobin 30.2 pg (28-32) Mean Corpuscular Hemoglobin Concent 34.4 g/dL (31-35) Red Cell Distribution Width 13.3 % (11.7-14.4) Platelet Count 290 x10e3/uL (140-360) Neutrophils (%) (Auto) 64.1 % (38.7-80.0) Lymphocytes (%) (Auto) 23.3 % (18.0-39.1) Monocytes (%) (Auto) 9.6 % (4.4-11.3) Eosinophils (%) (Auto) 1.5 % (0.0-6.0) Basophils (%) (Auto) 0.5 % (0.0-1.0) Neutrophils # (Auto) 4.0 (2.1-6.9) Lymphocytes # (Auto) 1.4 (1.0-3.2) Monocytes # (Auto) 0.6 (0.2-0.8) Eosinophils # (Auto) 0.1 (0.0-0.4) Basophils # (Auto) 0.0 (0.0-0.1) Absolute Immature Granulocyte (auto 0.06 x10e3/uL (0-0.1) Prothrombin Time 13.9 seconds (11.9-14.5) Prothromb Time International Ratio 1.02 Activated Partial Thromboplast Time 32.6 seconds (23.8-35.5) Sodium Level 139 mmol/L (136-145) Potassium Level 4.8 mmol/L (3.5-5.1) Chloride Level 107 mmol/L (98-107) Carbon Dioxide Level 25 mmol/L (22-29) Anion Gap 11.8 mmol/L (8-16) Blood Urea Nitrogen 19 mg/dL (7-26) Creatinine 1.24 mg/dL (0.72-1.25) Estimat Glomerular Filtration Rate 57 ML/MIN (60-) BUN/Creatinine Ratio 15 (6-25) Glucose Level 150 mg/dL (74-118) Calcium Level 9.6 mg/dL (8.4-10.2) Total Bilirubin 0.8 mg/dL (0.2-1.2) Aspartate Amino Transf (AST/SGOT) 15 IU/L (5-34) Alanine Aminotransferase (ALT/SGPT) 11 IU/L (0-55) Alkaline Phosphatase 51 IU/L (40-150) Creatine Kinase 49 IU/L (30-200) Creatine Kinase MB 1.00 ng/mL (0-5.0) Troponin I < 0.001 ng/mL (0-0.300) B-Type Natriuretic Peptide 25.8 pg/mL (0-100) Total Protein 7.1 g/dL (6.5-8.1) Albumin 4.0 g/dL (3.5-5.0) Globulin 3.1 g/dL (2.3-3.5) Albumin/Globulin Ratio 1.3 (0.8-2.0) Lab results reviewed: Yes Imaging Imaging results reviewed: Yes Procedures 12 Lead ECG Interpretation ECG Interpretation : ECG: ECG 1 Produce Manager: Interpreted by ED physician Date: Feb 06, 2020 Time: 11:54 Rhythm: sinus bradycardia Rate: bradycardia (59) QRS axis: normal ST segments normal: Yes T waves normal: Yes Clinical Impression: abnormal ECG Assessment & Plan Medical Decision Making MDM CBC, CHEM, CARDIACS, ECG, CXR - R/O STEMI/NSTEMI, CHF, PNEUMONIA, NON-CARDIAC CP Reassessment Reassessment SPOKE WITH DR CATHERINE FOR ADMISSION Assessment & Plan Final Impression: (1) Chest pain Depart Disposition: ADMITTED Last Vital Signs Date Time Temp Pulse Resp B/P (MAP) Pulse Ox O2 Delivery O2 Flow Rate FiO2 02/06/20 13:25 62 18 120/62 97 Room Air 02/06/20 11:50 98.3 Home Meds Reported Medications Sitagliptin Phos/Metformin Hcl (JANUMET XR 100-1,000 MG TABLET) 1 Each Tbmp.24hr 02/06/20 Lovastatin (LOVASTATIN) 20 Mg Tablet 02/06/20 Ramipril (RAMIPRIL) 10 Mg Capsule 02/06/20 Carvedilol (CARVEDILOL) 6.25 Mg Tablet 02/06/20 Medications in the ED Pantoprazole Sodium 40 mg ONCE IV ; Start 02/06/20 at 12:15; Stop 02/06/20 at 13:59 Aspirin 81 mg QAM PO ; Start 02/07/20 at 09:00; Stop 03/08/20 at 08:59; Status UNV Nitroglycerin 0.4 mg Q5M PRN SL CHEST PAIN; Start 02/06/20 at 13:30; Status UNV Morphine Sulfate 2 mg Q3H PRN IV MODERATE PAIN (4-6); Start 02/06/20 at 13:30; Stop 02/13/20 at 13:29; Status UNV Famotidine 20 mg Q12H IV ; Start 02/06/20 at 13:30; Stop 03/07/20 at 13:29; Status UNV Ondansetron HCl 4 mg Q4H PRN IV NAUSEA AND VOMITING; Start 02/06/20 at 13:30; Stop 03/07/20 at 13:29; Status UNV MINA KOCH MD Feb 06, 2020 13:33
--- OUTSIDE RECORDS SUMMARY | 2020-02-06 13:42 | XMS REPORT | Continuity of Care Document ---
Author Author [employer] Organization [employer] Address Unknown Phone Unavailable Care Team Providers Care Nursing Specialist Name Role Phone [employer] Information Exchange Unavailable Un available Problems Problem Status Onset Date Classification Date Reported Comments Source BRAIN TIA Active 12/06/2017 [facility] TEMPORARY CONFUSION Active 12/06/2017 [facility] Benign essential hypertension (disorder) Active Problem 01/30/2020 [facility] Familial type 5 hyperlipoproteinemia (disorder) Active Problem 01/30/2020 [facility] History of - TIA (context-dependent category) Active Problem 01/30/2020 [facility] Malignant tumor of urinary bladder (disorder) Resolved Problem 01/30/2020 [facility] Microalbuminuria (finding) [place] Problem 01/[facility] Diabetes mellitus type 2 (disorder) Active Problem 01/2020 [facility] Urostomy present (finding) [place] Problem 01/2020 [facility] Diabetic peripheral neuropathy (disorder) Active Problem 07/11/2019 [facility] Pyelonephritis (disorder) Reso lved Problem 01/2020 [facility] [place] - lesion (disorder) Active Problem 01/30/2020 [facility] Peripheral vascular disease (disorder) Active Problem 01/2020 [facility] Medications Medication Details Route Status Patient Instructions Ordering Provider Order Date Source lovastatin 20 mg oral tablet S ee Instructions, TAKE 1 TABLET BY MOUTH EVERY DAY, # 90 tab, 3 Refill(s), Pharmacy: [id number], 177.8, cm, 11/20/19 9:46:00 CDT, Height, 94.545, kg, 11/20/19 9:46:00 CDT, Weight Active 01/27/2020 [facility] 24 HR Metformin hydrochloride 1000 MG / sitagliptin 100 MG Extended Release Tablet [Janumet 100/1000] 1 tab, PO, Daily, # 90 ea, 1 Refill(s), Pharmacy: [facility] #[id number], 177.8, cm, 11/20/19 9:46:00 CDT, Height, 94.545, kg, 11/20/19 9:46:00 CDT, Weight Active 12/02/2019 [facility] carvedilol 6.25 mg oral tablet 6.25 mg = 1 tab, PO, BID, # 180 tab, 3 Refill(s), Pharmacy: [facility] Active 07/07/2019 [facility] ciprofloxacin 500 mg oral tablet 500 mg = 1 tab, PO, Q12H, X 7 day, # 14 tab, 0 Refill(s), Pharmacy: [facility] Active 05/25/2019 [facility] 24 HR Metformin hydrochloride 1000 MG / sitagliptin 100 MG Extended Release Tablet [Janumet 100/1000] 1 tab, PO, Daily, # 90 ea, 1 Refill(s), Pharmacy: [place] [address] Active 05/15/2019 [facility] carvedilol 6.25 mg oral tablet 6.25 mg = 1 tab, PO, BID, # 180 tab, 3 Refill(s), Pharmacy: [place] [address] Active 05/02/2019 [facility] 24 HR Metformin hydrochloride 1000 MG / sitagliptin 100 MG Extended Release Tablet [Janumet 100/1000] = 1 tab, PO, Daily, # 90 ea, Pharmacy: [place] [address] Active 11/28/2018 [facility] lovastatin 20 mg oral tablet = 1 tab, PO, Bedtime, # 90 ea, Pharmacy: [place] [address] Active 11/28/2018 [facility] [employer] Precision Amrit Blood Glucose Test Strips 1 ea, MISC, Daily, E11.9, # 100 ea, Not insulin dependent, Does not use insulin pump, Last DM eval date 11/12/18, 3 Refill(s), Pharmacy: [facility] Active 11/12/2018 [facility] 24 HR Metformin hydrochloride 1000 MG / sitagliptin 100 MG Extended Release Tablet 1 tab, PO, Daily, # 90 tab, 1 Refill(s), Pharmacy: [place] [address] No Longer Active 06/11/2018 [facility] lovastatin 20 mg oral tablet 2 0 mg = 1 tab, PO, Bedtime, # 90 tab, 1 Refill(s), Pharmacy: [facility] No Longer Active 06/04/2018 [facility] carvedilol 6.25 mg oral tablet 6.25 mg = 1 tab, PO, BID, # 180 tab, 3 Refill(s), Pharmacy: [facility] Active 05/01/2018 [facility] Folic Acid Notes: (Same as: Fo lvite) No Longer Active 12/08/2017 [facility] Lipitor Notes: (Same As: Lipit or) Inactive 12/08/2017 [facility] Lovastatin 20 mg, Route: PO, D rug form: TAB, Bedtime, Dosing Weight 95.636, kg, Start date: 12/07/17 21:00:00 CDT, Duration: 30 day, Stop date: 01/05/18 21:00:00 CDT No Longer Active 12/08/2017 [facility] Tricor Notes: (Same as: Tricor) Inactive 12/07/2017 [facility] Folic Acid 1 MG Oral Tablet 1 mg, PO, Daily, # 30 tab, 0 Refill(s), Pharmacy: [facility] Active 12/07/2017 [facility] Fenofibrate 145 MG Oral Tablet 145 mg = 1 tab, PO, Daily, # 30 tab, 0 Refill(s), Pharmacy: [facility] Active 12/07/2017 [facility] Saline Flush 0.9% Notes: (Same as: BD Posiflush) Inactive 12/07/2017 [facility] Aspirin 81 MG Enteric Coated Tablet Notes: Do not crush or chew. (Same As: Ecotrin) Inactive 12/07/2017 [facility] Fish Oil Notes: (Same as: José Miguel JAY, [place] 3 fish oil ) Non-Formulary Drug Inactive 12/07/2017 [facility] Ramipril Notes: (Same as:Altac e) Inactive 12/07/2017 [facility] carvedilol Notes: Give with fo od. (Same As: Coreg) Inactive 12/07/2017 [facility] Dextrose 50% Syringe 12.5 gm, 25 mL, Route: IVP, Drug Form: INJ, Dosing Weight 95.636, kg, PRN, PRN Blood Glucose Results, Start date: 12/06/17 23:29:00 CDT, Duration: 30 day, Stop date: 01/05/18 23:28:00 CDT No Longer Active 12/07/2017 [facility] Glucagon 1 mg, Route: IM, Drug form: PDR/INJ, PRN, Dosing Weight 95.636, kg, PRN Blood Glucose Results, Start date: 12/06/17 23:29:00 CDT, Duration: 30 day, Stop date: 01/05/18 23:28:00 CDT No Longer Active 12/07/2017 [facility] Insulin Lispro Notes: (Same as : Humalog ) Roll in palms of hands gently; Do not shake `vigorously. "Single Patient Use Only " WASTE: F/P - Black; E - Municipal Trash Bin Stable for 28 days at room temp erature. Expires in days from Date No Longer Active 12/07/2017 [facility] Saline Flush 0.9% Notes: (Same as: BD Posiflush) No Longer Active 12/07/2017 [facility] Aspirin Notes: Take with food. Inactive 12/07/2017 [facility] Allergies, Adverse Reactions, Alerts Substance Category Reaction Severity Reaction type Status Date Reported Comments Source sulfa drugs Assertion Drug allergy Active [facility] NKFA Assertion Food allergy Active [facility] Immunizations Immunization Date Given Site Status Last Updated Comments Source influenza virus vaccine, inactivated 05/15/2019 Right Deltoid completed F[facility]ix [facility] influenza virus vaccine, inactivated 04/02/2018 Right [...] should be multiplied by the estimated BMI. [facility] CHEM PANEL BUN 16 7 - 22 12/07/2017 [facility] CHEM PANEL AGAP 9.6 10.0 - 20.0 12/07/2017 [facility] CHEM PANEL Calcium Lvl 9.0 8.5 - 10.5 12/07/2017 [facility] CHEM PANEL Creatinine Lvl 0.98 0.50 - 1.40 12/07/2017 [facility] CHEM PANEL Sodium Lvl 142 135 - 145 12/07/2017 [facility] CHEM PANEL Potassium Lvl 3.6 3.5 - 5.1 12/07/2017 [facility] CHEM PANEL CO2 27 24 - 32 12/07/2017 [facility] CHEM PANEL Chloride Lvl 109 95 - 109 12/07/2017 [facility] CHEM PANEL Glucose Lvl 133 70 - 99 12/07/2017 [facility] HEMATOLOGY Eosinophils 1.7 0.0 - 4.0 12/07/2017 [facility] HEMATOLOGY Basophils 0.4 0.0 - 1.0 12/07/2017 [facility] HEMATOLOGY Lymphocytes # 1.7 1.0 - 5.5 12/07/2017 [facility] HEMATOLOGY Segs-Bands # 4.3 1.5 - 8.1 12/07/2017 [facility] HEMATOLOGY Monocytes # 0.6 0.0 - 0.8 12/07/2017 [facility] HEMATOLOGY Eosinophils # 0.1 0.0 - 0.5 12/07/2017 [facility] Monocytes 9.4 2.0 - 12.0 12/07/2017 [facility] Lymphocytes 25.7 20.0 - 40.0 12/07/2017 [facility] HEMATOLOGY Segs 62.8 45.0 - 75.0 12/07/2017 [facility] MCV 88.2 80.0 - 94.0 12/07/2017 [facility] MCHC 34.5 32.0 - 36.0 12/07/2017 [facility] MCH 30.5 27.0 - 31.0 12/07/2017 [facility] Platelet 229 133 - 450 12/07/2017 [facility] RDW 14.1 11.5 - 14.5 12/07/2017 [facility] Hct 43.7 42.0 - 54.0 12/07/2017 [facility] MPV 8.9 7.4 - 10.4 12/07/2017 [facility] HEMATOLOGY WBC 6.8 3.7 - 10.4 12/07/2017 [facility] HEMATOLOGY Hgb 15.1 14.0 - 18.0 12/07/2017 [facility] HEMATOLOGY RBC 4.95 4.70 - 6.10 12/07/2017 [facility] SPECIAL CHEMISTRY Hgb A1C 7.1 <=5.6 % 12/07/2017 [facility] CARDIAC ENZYMES Troponin-I <0.02 0.00 - 0.40 12/06/2017 [facility] CARDIAC ENZYMES CK MB <1.0 0.5 - 3.6 12/06/2017 [facility] CARDIAC ENZYMES Total CK 58 12 - 191 12/06/2017 [facility] CARDIAC ENZYMES CK MB Index <1.7 0.0 - 2.5 12/06/2017 [facility] CHEM PANEL eGFR 61 12/06/2017 Result [...] should be multiplied by the estimated BMI. [facility] CHEM PANEL AST 10 0 - 37 12/06/2017 [facility] CHEM PANEL ALT 19 0 - 65 12/06/2017 [facility] CHEM PANEL Alk Phos 56 39 - 136 12/06/2017 [facility] CHEM PANEL Bili Total 0.8 0.2 - 1.3 12/06/2017 [facility] CHEM PANEL AGAP 13.6 10.0 - 20.0 12/06/2017 [facility] CHEM PANEL B/C Ratio 14 6 - 25 12/06/2017 [facility] CHEM PANEL A/G Ratio 1.1 0.7 - 1.6 12/06/2017 [facility] CHEM PANEL Globulin 3.4 2.7 - 4.2 12/06/2017 [facility] CHEM PANEL Creatinine Lvl 1.19 0.50 - 1.40 12/06/2017 [facility] CHEM PANEL Glucose Lvl 201 70 - 99 12/06/2017 [facility] CHEM PANEL Sodium Lvl 143 135 - 145 12/06/2017 [facility] CHEM PANEL BUN 17 7 - 22 12/06/2017 [facility] CHEM PANEL Potassium Lvl 4.6 3.5 - 5.1 12/06/2017 [facility] CHEM PANEL Chloride Lvl 106 95 - 109 12/06/2017 [facility] CHEM PANEL Albumin Lvl 3.9 3.5 - 5.0 12/06/2017 [facility] CHEM PANEL Total Protein 7.3 6.4 - 8.4 12/06/2017 [facility] CHEM PANEL Calcium Lvl 9.1 8.5 - 10.5 12/06/2017 [facility] CHEM PANEL CO2 28 24 - 32 12/06/2017 [facility] HEMATOLOGY RBC 5.24 4.70 - 6.10 12/06/2017 [facility] HEMATOLOGY Hgb 15.8 14.0 - 18.0 12/06/2017 [facility] HEMATOLOGY WBC 8.6 3.7 - 10.4 12/06/2017 [facility] MCH 30.1 27.0 - 31.0 12/06/2017 [facility] HEMATOLOGY MCV 88.6 80.0 - 94.0 12/06/2017 [facility] HEMATOLOGY Hct 46.4 42.0 - 54.0 12/06/2017 [facility] MCHC 34.0 32.0 - 36.0 12/06/2017 [facility] HEMATOLOGY RDW 14.2 11.5 - 14.5 12/06/2017 [facility] HEMATOLOGY Platelet 263 133 - 450 12/06/2017 [facility] HEMATOLOGY MPV 9.3 7.4 - 10.4 12/06/2017 [facility] HEMATOLOGY Eosinophils # 0.1 0.0 - 0.5 12/06/2017 [facility] HEMATOLOGY Monocytes # 0.5 0.0 - 0.8 12/06/2017 [facility] HEMATOLOGY Monocytes 6.3 2.0 - 12.0 12/06/2017 [facility] HEMATOLOGY Eosinophils 0.7 0.0 - 4.0 12/06/2017 [facility] HEMATOLOGY Segs 72.4 45.0 - 75.0 12/06/2017 [facility] HEMATOLOGY Lymphocytes 20.4 20.0 - 40.0 12/06/2017 [facility] Lymphocytes # 1.8 1.0 - 5.5 12/06/2017 [facility] HEMATOLOGY Segs-Bands # 6.2 1.5 - 8.1 12/06/2017 [facility] HEMATOLOGY Basophils 0.2 0.0 - 1.0 12/06/2017 [facility] Pathology Reports No Data Provided for [...] No intracranial abnormalities are visualized. SL:16 12/07/2017 [facility] Carotid artery Doppler bilat US EXAM: [...] Lauro CB, Sasha GL, et. al. SL: [id number] 12/07/2017 [facility] Chest 1view DX Patient Name: Sandip TANNER : 1945; Age: 72 years Male MR: [id number] Study: Chest 1view DX Order Time: 12/06/2017 1:39 PM CDT CLINICAL INDICATION: Chest pain - TIA COMPARISON: None FINDINGS: Lines: None. Lungs: Minimal left lung base atelectasis. No significant effusion or pneumothorax. Mediastinum: The cardiac silhouette is within normal limits of size. Midline trachea. Bones and soft tissues: No acute abnormalities. IMPRESSION: No acute cardiopulmonary abnormalities. SL: [id number] 12/06/2017 [facility] Brain Stroke wo contrast CT EX AM: CT BRAIN WITHOUT CONTRAST DATE: 12/06/2017 1:39 PM CDT INDICATION: - tia symptoms. Acute CVA. COMPARISON: None. TECHNIQUE: Routine axial CT images of the brain were obtained. IV contrast: None. DLP: 859.11 mGy-cm FINDINGS: Non-contrast images of the head demonstrate no edema, hemorrhage, mass lesion or other acute intracranial abnormality. The drake-white matter distinction is preserved. The ventricles are normal. The basal cisterns and sulci are normal in size. Marked atherosclerotic calcification of the distal internal carotid and vertebral arteries. Mild mucosal thickening of the ethmoid air cells. The mastoid air cells are clear. IMPRESSION: 1. No definite acute infarct or intracra nial hemorrhage detected. SL: [id number] 12/06/2017 [facility] Consultation Notes No Data Provided for This Section Discharge Summaries No Data Provided for This Section History and Physicals No Data Provided for This Section Vital Signs Vital Sign Value Date Comments Source Systolic (mm Hg) 146 11/20/2019 [facility] Diastolic (mm Hg) 85 11/20/2019 [facility] Heart Rate 67 11/20/2019 [facility] Temperature Oral (F) 98.7 F 11/20/2019 [facility] Height 177.8 cm 11/20/2019 [facility] Weight 94.545 11/20/2019 [facility] BMI Calculated 29.91 11/20/2019 [facility] Systolic (mm Hg) 128 08/21/2019 [facility] Diastolic (mm Hg) 84 08/21/2019 [facility] Heart Rate 68 08/21/2019 [facility] Temperature [...] 63 12/07/2017 [facility] Rate 17 12/07/2017 [facility] Heart Rate 77 12/07/2017 [facility] Temperature Oral (F) 99.0 F 12/07/2017 [facility] Systolic (mm Hg) 144 12/07/2017 [facility] Diastolic (mm Hg) 71 12/07/2017 [facility] Respitory Rate 17 12/07/2017 [facility] Heart Rate 71 12/07/2017 [facility] Temperature Oral (F) 98.9 F 12/07/2017 [facility] Temperature Oral (F) 98.1 F 12/07/2017 [facility] Heart Rate 71 12/07/2017 [facility] Rate 18 12/07/2017 [facility] Systolic (mm Hg) 121 12/07/2017 [facility] Diastolic (mm Hg) 69 12/07/2017 [facility] Weight 95.636 12/07/2017 [facility] BMI Calculated 30.25 12/07/2017 [facility] Height 177.8 cm 12/07/2017 [facility] Weight 95.455 12/06/2017 [facility] BMI Calculated 30.2 12/06/2017 [facility] Height 177.8 cm 12/06/2017 [facility] Encounters Location Location Details Encounter Type Encounter Number Reason For Visit Attending Provider ADM Date DC Date Status Source Outpatient [id number] ROYA WALTERS 11/14/2017 [facility] Outpatient [id number] ROYA WALTERS 11/29/2017 [facility] Observation [id number] Elias Atwood 12/06/2017 12/07/2017 [facility] Outpatient [id number] ROYA WALTERS 04/02/2018 [facility] Outpatient [id number] Roya Rolomelissa 04/02/2018 2018 [facility] Phone Message [id number] 05/01/2018 05/03/2018 [facility] Phone Message [id number] 06/04/2018 06/06/2018 [facility] Phone Message [id number] 06/10/2018 06/12/2018 [facility] Phone Message [id number] 06/11/2018 06/13/2018 [facility] Outpatient [id number] KRYSTINA MEKHI 07/31/2018 Active [facility] Outpatient [id number] Roya Tahira 07/31/2018 08/01/2018 [facility] Outpatient [id number] KRYSTINA MEKHI 10/31/2018 Active [facility] Ambulatory Pre-Reg [id number] Krystina Mekhi 10/31/2018 10/31/2018 [facility] Outpatient [id number] Krystina Mekhi 11/04/2018 Active [facility] Ambulatory Pre-Reg [id number] Krystina [place] 11/04/2018 11/04/2018 [facility] Outpatient [id number] Krystina [place] 11/12/2018 Active [facility] Outpatient [id number] Krystina [place] 11/13/1911/13/2018 [facility] Between Visit [id number] 11/14/2018 11/15/2018 [facility] Outpatient [id number] Krystina [place] 02/12/2019 Active [facility] Outpatient [id number] Krystina [place] 02/13/2002/13/2019 [facility] Between Visit [id number] 02/17/2019 02/18/2019 [facility] Phone Message [id number] 05/01/2019 05/03/2019 [facility] Outpatient [id number] Krystina [place] 05/15/2019 Active [facility] Outpatient [id number] Krystina Mekhi 05/15/2005/16/2019 [facility] Between Visit [id number] 05/18/2019 05/19/2019 [facility] Outpatient [id number] Krystina [place] 05/25/2019 Active [facility] [place] [facility] Outpatient [id number] Krystina [place] 05/25/2005/26/2019 [facility] Between Visit [id number] 05/30/2019 05/31/2019 [facility] Phone Message [id number] 07/07/2019 07/09/2019 [facility] Outpatient [id number] Krystina [place] 08/21/2019 Active [facility] [place] [facility] Outpatient [id number] Krystina [place] 08/21/19 20 08/22/2019 [facility] Outpatient [id number] Krystina [place] 08/24/2019 Active [facility] [place] [facility] Between Visit [id number] 08/24/2019 08/25/2019 [facility] Ambulatory Pre-Reg [id number] Krystina [place] 08/24/2019 08/24/2019 [facility] Outpatient [id number] Krystina [place] 11/20/2019 [facility] Outpatient [id number] Krystina [place] 11/20/1911/21/2019 [facility] Between Visit [id number] 11/24/2019 11/25/2019 [facility] Between Visit [id number] 12/01/2019 12/02/2019 [facility] Between Visit [id number] 01/27/2020 01/28/2020 [facility] Outpatient [id number] Krystina Lu 03/18/2020 Active [facility] Procedures Procedure Code Date Perfomer Comments Source Diabetic retinal eye exam<sup>1</sup> [id number] 03/12/[address] Fredy Baird [facility] Colonoscopy<sup>2</sup> [id number] 06/24/2015 2016 - Repeat 5 years [facility] Construction of urostomy<sup>2</sup> [id number] 06/24/2005 Estimated date. This was done for history of bladder cancer. He reports prostate was removed at the same time [facility] Construction of urostomy<sup>1</sup> [id number] 06/24/2005 Estimated date. This was done for history of bladder cancer. He reports prostate was removed at the same time [facility] Construction of urostomy<sup>3</sup> [id number] 06/24/2005 Estimated date. This was done for history of bladder cancer. He reports prostate was removed at the same time [facility] Cataract surgery [id number] [facility] Prostatectomy [id number] [facility] Assessment and Plan No Data Provided for This Section Plan of Care No Data Provided for This Section Social History Social History Date Source Social History TypeResponse Alcohol Never Employment/School Status: Employed. 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 Sexual Sexually active: No. Substance Abuse Use: None. Smoking Status Never smoker; Exposure to Tobacco Smoke None; Cigarette Smoking Last 365 Days No; Reg Smoking Cessation Counseling No entered on: 11/20/19 04/02/2018 [facility] Social History TypeResponse Substance Abuse Use: None. Sexual Sexually active: No. Employment/School Status: Employed. Alcohol Never Smoking Status Never smoker; Exposure to Tobacco Smoke None; Cigarette Smoking Last 365 Days No; Reg Smoking Cessation Counseling No entered on: 12/06/17 11/14/2017 [facility] Family History No Data Provided for This Section Advance Directives No Data Provided for This Section Functional Status No Data Provided for This Section
--- OUTSIDE RECORDS SUMMARY | 2020-02-06 13:43 | XMS REPORT | Continuity of Care Document ---
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 Role Phone NONSTAFF PCP Unavailable Aby Lu Attphys Eduardo MENDOZA Attphys Unavailable Aby Hoffmann Attphys AtwoodNessa Attphys Atwood, Nessa Griffin Admphys Problems Condition Name Condition Details Condition Category Status Onset Date Resolution Date Last Treatment Date Treating Clinician Comments Source BRAIN TIA BRAI N TIA Active 12/06/2017 [facility] Diagnosis Active 2017-12-06 00:00:00 2017-12-09 08:59:00 Mingo Weir TEMPORARY CONFUSION TEMP ORARY CONFUSION Active 12/06/2017 [facility] Diagnosis Active 2017-12-06 00:00:00 2017-12-06 20:24:00 Mingo Weir Malignant tumor of urinary bladder (disorder) Malignant tumor of urinary bladder (disorder) Resolved Problem 01/30/2020 Medical [facility] Problem Resolved 2020-01-30 21:44:39 Mingo Weir Pyelonephritis (disorder) Pyel onephritis (disorder) Resolved Problem 01/30/2020 [facility] Problem Resolved 2020-01-30 21:44:39 Mingo Weir Benign essential hypertension (disorder) Benign essential hypertension (disorder) Active Problem 01/30/2020 [facility] Problem Active 2020-01-30 21:44:39 Joel Weir 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) Active Problem 01/30/2020 [facility] Problem Active 2020-01-30 21:44:39 Mingo Weir History of - TIA (context-dependent category) History of - TIA (context-dependent category) Active Problem 01/30/2020 [facility] Problem Active 2020-01-30 21:44:39 Mingo Weir Microalbuminuria (finding) Abdulaziz roalbuminuria (finding) Active Problem 01/30/2020 [facility] Problem Active 2020-01-30 21:44:39 Mingo Weir Diabetes mellitus type 2 (disorder) Diabetes mellitus type 2 (disorder) Active Problem 01/30/2020 [facility] Problem Active 2020-01-30 21:44:39 Memor rafi Weir Urostomy present (finding) Uro stomy present (finding) Active Problem 01/30/2020 [facility] Problem Active 2020-01-30 21:44:39 Mingo Weir Diabetic peripheral neuropathy (disorder) Diabetic peripheral neuropathy (disorder) Active Problem 07/11/2019 [facility] Problem Active 2019-07-11 01:39:49 Mingo Weir [place] - lesion (disorder) [place] - lesion (disorder) Active Problem 01/30/2020 [facility] Problem Active 2020-01-30 21: 44:[address] [facility] Peripheral vascular disease (disorder) Peripheral vascular disease (disorder) Active Problem 01/30/2020 [facility] Problem Active 2020-01-30 21:44:39 [facility] [place] Allergies, Adverse Reactions, Alerts Allergy Name Allergy Type Status Severity Reaction(s) Onset Date Inacti ve Date Treating Clinician Comments Source Sulfa (Sulfonamide Antibiotics) Allergy to Substance Active 2019-05-07 00:00:00 [facility] sulfa drugs sulfa drugs Active [facility] NKFA NKFA Active [facility] Social History Social Habit Start Date Stop Date Quantity Comments Source Social History 2017-11-14 16:18:32 2017-11-14 16:18:32 [facility] Medications Ordered Medication Name Filled Medication Name Start Date Stop Da te Current Medication? Ordering Clinician Indication Dosage Frequency Signature (SIG) Comments Components Source lovastatin 20 mg oral tablet 2020-01-27 18:28:00 Yes See Instructions, TAKE 1 TABLET BY MOUTH EVERY DAY, # 90 tab, 3 Refill(s), Pharmacy: [facility] #[id number], 177.8, cm, 11/20/19 9:46:00 CDT, Height, 94.545, kg, 11/20/19 9:46:00 CDT, Weight [facility] [place] 24 HR Metformin hydrochloride 1000 MG / sitagliptin 100 MG Extended Release Tablet [Janumet 100/1000] 2019-12-02 12:37:00 Yes 1 tab, PO, Daily, # 90 ea, 1 Refill(s), Pharmacy: [facility] #[id number], 177.8, cm, 11/20/19 9:46:00 CDT, Height, 94.545, kg, 11/20/19 9:46:00 CDT, Weight Mingo Weir carvedilol 6.25 mg oral tablet 2019-07-07 19:00:00 Yes 6.25 mg = 1 tab, PO, BID, # 180 tab, 3 Refill(s), Pharmacy: [facility] ciprofloxacin 500 mg oral tablet 2019-05-25 22:17:00 Yes 500 mg = 1 tab, PO, Q12H, X 7 day, # 14 tab, 0 Refill(s), Pharmacy: [facility] 24 HR Metformin hydrochloride 1000 MG / sitagliptin 100 MG Extended Release Tablet [Junumet ] 2019-05-15 15:10:11 Yes 1 tab, PO, Daily, # 90 ea, 1 Refill(s), Pharm[facility]: [facility] carvedilol 6.25 mg oral tablet 2019-05-02 15:20:00 Yes 6.25 mg = 1 tab, PO, BID, # 180 tab, 3 Refill(s), Pharmacy: [address] 24 HR Metformin hydrochloride 1000 MG / sitagliptin 100 MG Extended Release Tablet [Junumet ] 2018-11-28 01:18:07 Yes = 1 tab, PO, Daily, # 90 ea, Pharmacy: [address] lovastatin 20 mg oral tablet 2018-11-28 01:18:07 Yes = 1 tab, PO, Bedtime, # 90 ea, Pharmacy: [facility] FreeStyle Precision Amrit Blood Glucose Test Strips 2018-11-12 15:29:00 Yes 1 ea, MISC, Daily, E 11.9, # 100 ea, Not insulin dependent, Does not use insulin pump, Last DM eval date 11/12/18, 3 Refill(s), Pharmacy: [address] 24 HR Metformin hydrochloride 1000 MG / sitagliptin 100 MG Extended Release Tablet 2018-06-11 21:38:00 No 1 tab, PO, Daily, # 90 tab, 1 Refill(s), Pharmacy: [address] lovastatin 20 mg oral tablet 2018-06-04 19:17:00 No 20 mg = 1 tab, PO, Bedtime, # 90 tab, 1 Refill(s), Pharmacy: [address] carvedilol 6.25 mg oral tablet 2018-05-01 22:33:00 Yes 6.25 mg = 1 tab, PO, BID, # 180 tab, 3 Refill(s), Pharmacy: [address] Folic Acid 2017-12-08 14:00:00 No Notes: (S rajiv as: Folvite) [facility] Lipitor 2017-12-08 02:00:00 No Notes: (Same As: Lipitor) [facility] Lovastatin 2017-12-08 02:00:00 No 20 mg, Route: PO, Drug form: TAB, Bedtime, Dosing Weight 95.636, kg, Start date: 12/07/17 21:00:00 CDT, Duration: 30 day, Stop date: 01/05/18 21:00:00 CDT [facility] Tricor 2017-12-07 22:00:00 No Notes: (Same as: Tricor) [facility] Folic Acid 1 MG Oral Tablet 2017-12-07 17:18:00 Yes 1 mg, PO, Daily, # 30 tab, 0 Refill(s), Pharmacy: [address] Fenofibrate 145 MG Oral Tablet 2017-12-07 17:18:00 Yes 145 mg = 1 tab, PO, Daily, # 30 tab, 0 Refill(s), Pharmacy: [address] Saline Flush 0.9% 2017-12-07 14:00:00 No Notes: (Same as: BD Posiflush) [facility] Aspirin 81 MG Enteric Coated Tablet 2017-12-07 14:00:00 No Notes: Do not crush or chew. (Same As: Ecotrin) [facility] Fish Oil 2017-12-07 14:00:00 No Notes: (Same as: MaxEPA, [place] 3 fish oil ) Non-Formulary Drug Mingo [...] 30 day, Stop date: 01/05/18 23:28:00 CDT [facility] [address] Insulin Lispro 2017-12-07 04:29:00 No Notes: (Same as: Humalog ) Roll in palms of hands gently; Do not shake `vigorously. "Single Patient Use Only " WASTE: F/P - Black; E - Municipal Trash Bin Stable for 28 days at room temperature. Expires in days from Date [facility] [address] Saline Flush 0.9% 2017-12-07 04:26:00 No Notes: (Same as: BD Posiflush) [facility] [address] Aspirin 2017-12-07 00:33:00 No Notes: Take with food. [facility] Vital Signs Vital Name Observation Time Observation Value Comments Source Systolic (mm Hg) 2019-11-20 14:46:00 Joel peeeduardo Weir Diastolic (mm Hg) 2019-11-20 14:46:00 [facility] [place] Heart Rate 2019-11-20 14:46:[address] [facility] Temperature Oral (F) 2019-11-20 14:46:00 98.7 F [facility] Height 2019-11-20 14:46:00 177.8 cm [facility] Weight 2019-11-20 14:46:00 [facility] BMI Calculated 2019-11-20 14:46:00 [facility] [place] Systolic (mm Hg) 2019-08-21 15:33:00 Joel rial [facility] Diastolic (mm Hg) 2019-08-21 15:33:00 [facility] Heart Rate 2019-08-21 15:33:00 [facility] Temperature Oral (F) 2019-08-21 15:33:00 98.5 F [facility] Height 2019-08-21 15:33:00 177.8 cm [facility] Weight 2019-08-21 15:33:00 [facility] BMI Calculated 2019-08-21 15:33:00 [facility] Systolic (mm Hg) 2019-05-25 21:24:00 Joel rial [place] Diastolic (mm Hg) 2019-05-25 21:24:00 [facility] [place] Heart Rate 2019-05-25 21:24:00 [facility] Temperature Oral (F) 2019-05-25 21:24:00 98.5 F [facility] Height 2019-05-25 21:24:00 179.07 cm [facility] Weight 2019-05-25 21:24:00 [facility] BMI Calculated 2019-05-25 21:24:00 [facility] [place] Systolic (mm Hg) 2019-05-15 14:34:00 Joel [facility] [place] Diastolic (mm Hg) 2019-05-15 14:34:00 [facility] Heart Rate 2019-05-15 14:34:00 [facility] Temperature Oral (F) 2019-05-15 14:34:00 98.5 F [facility] Height 2019-05-15 14:34:00 179.07 cm [facility] Weight 2019-05-15 14:34:00 [facility] BMI Calculated 2019-05-15 14:34:00 [facility] Systolic (mm Hg) 2019-02-12 20:14:00 Joel rial [facility] Diastolic (mm Hg) 2019-02-12 20:14:00 [facility] Heart Rate 2019-02-12 20:14:00 [facility] Temperature Oral (F) 2019-02-12 20:14:00 98.4 F [facility] Height 2019-02-12 20:14:00 179.07 cm [facility] Weight 2019-02-12 20:14:00 [facility] BMI Calculated 2019-02-12 20:14:00 [facility] Weight 2018-11-12 14:55:00 [facility] BMI Calculated 2018-11-12 14:55:00 [facility] [place] Height 2018-11-12 14:55:00 177.8 cm [facility] Temperature Oral (F) 2018-11-12 14:55:00 98.0 F [facility] Heart Rate 2018-11-12 14:55:00 [facility] Systolic (mm Hg) 2018-11-12 14:55:00 Joel rial [place] Diastolic (mm Hg) 2018-11-12 14:55:00 [facility] [place] Systolic (mm Hg) 2018-07-31 21:32:00 Joel rial Lexa Diastolic (mm Hg) 2018-07-31 21:32:00 [facility] [place] Heart Rate 2018-07-31 21:32:00 [facility] Temperature Oral (F) 2018-07-31 21:32:00 97.6 F [facility] Height 2018-07-31 21:32:00 177.8 cm [facility] Weight 2018-07-31 21:32:00 [facility] BMI Calculated 2018-07-31 21:32:00 [facility] Systolic (mm Hg) 2018-04-02 20:25:00 Joel rial Lexa Diastolic (mm Hg) 2018-04-02 20:25:00 [facility] Temperature Oral (F) 2018-04-02 20:25:00 98.1 F [facility] Heart Rate 2018-04-02 20:25:00 [facility] BMI Calculated 2018-04-02 20:25:00 [facility] [place] Height 2018-04-02 20:25:00 177.8 cm [facility] Weight 2018-04-02 20:25:00 [facility] Systolic (mm Hg) 2017-12-07 16:38:00 Joel rial [place] Diastolic (mm Hg) 2017-12-07 16:38:00 [facility] Respitory Rate 2017-12-07 16:38:00 [facility] [place] Heart Rate 2017-12-07 16:38:00 [facility] Temperature Oral (F) 2017-12-07 16:38:00 99.0 F [facility] Systolic (mm Hg) 2017-12-07 12:45:00 Joel rial [place] Diastolic (mm Hg) 2017-12-07 12:45:00 [facility] Respitory Rate 2017-12-07 12:45:00 [facility] Heart Rate 2017-12-07 12:45:00 [facility] Temperature Oral (F) 2017-12-07 12:45:00 98.9 F [facility] Temperature Oral (F) 2017-12-07 08:22:00 98.1 F [facility] Heart Rate 2017-12-07 08:22:00 [facility] Respitory Rate 2017-12-07 08:22:00 [facility] Systolic (mm Hg) 2017-12-07 08:22:00 Joel [facility] [place] Diastolic (mm Hg) 2017-12-07 08:22:00 [facility] [address] Weight 2017-12-07 02:23:00 [facility] BMI Calculated 2017-12-07 02:23:00 [facility] Height 2017-12-07 02:23:00 177.8 cm [facility] Weight 2017-12-06 18:37:00 [facility] BMI Calculated 2017-12-06 18:37:00 [facility] Height 2017-12-06 18:37:00 177.8 cm [facility] Procedures Procedure Date / Time Performed Performing Clinician [facility] of abdomen and pelvis without contrast 2019-05-07 00:00:0 0 SETH MENDOZA [facility] Diabetic retinal eye exam<sup>1</sup> 2018-03-12 05:00:00 [facility] Colonoscopy<sup>2</sup> 2015-06-24 00:00:00 Joel rial Lexa Construction of urostomy<sup>3</sup> 2005-06-24 06:00:00 [facility] Cataract surgery [facility] Prostatectomy [facility] Encounters Start Date/Time End Date/Time [facility] Source 2020-01-27 13:28:55 2020-01-28 13:28:55 Outpatient [facility] [id number] 2019-12-01 10:55:11 2019-12-02 10:55:11 Outpatient [facility] [id number] 2019-11-24 18:08:06 2019-11-25 18:08:06 Outpatient [facility] [id number] 2019-11-20 09:30:00 2019-11-20 23:59:59 Outpatient Krystina Wolff [facility] [id number] 2019-08-24 11:53:09 2019-08-25 11:53:09 Outpatient [facility] [id number] 2019-08-24 16:15:00 2019-08-24 16:15:00 Outpatient Kirk Wolffhanadrien Robertoe [facility] [id number] 2019-08-21 09:30:00 2019-08-21 23:59:59 Outpatient Kirk Wolffhanadrien Robertoe [facility] [id number] 2019-07-07 09:07:36 2019-07-08 23:59:59 Outpatient [facility] [id number] 2019-05-29 18:36:56 2019-05-30 18:36:56 Outpatient [facility] [id number] 2019-05-25 15:00:00 2019-05-25 23:59:59 Outpatient Krystina Wolff [facility] [id number] 2019-05-18 07:58:29 2019-05-19 07:58:29 Outpatient [facility] [id number] 2019-05-15 08:30:00 2019-05-15 23:59:59 Outpatient Krystina Wolff [facility] [id number] 2019-05-07 21:17:00 2019-05-08 01:06:00 Departed Emergency Room 1 SETH MENDOZA [facility] [id number] [facility] 2019-05-01 11:32:22 2019-05-02 23:59:59 Outpatient [facility] [id number] 2019-02-16 19:39:34 2019-02-17 19:39:34 Outpatient [facility] [id number] 2019-02-12 15:15:00 2019-02-12 23:59:59 Outpatient Krystina Wolff [facility] [id number] 2018-11-14 09:50:33 2018-11-15 09:50:33 Outpatient [facility] [id number] 2018-11-12 09:30:00 2018-11-12 23:59:59 Outpatient Krystina Wolff [facility] [id number] 2018-11-04 08:30:00 2018-11-04 08:30:00 Outpatient Krystina Wolff [facility] [id number] 2018-10-31 09:00:00 2018-10-31 09:00:00 Outpatient Krystina Wolff [facility] [id number] 2018-07-31 15:15:00 2018-07-31 23:59:59 Outpatient Allison Hoffmannkhalif Badillo [facility] [id number] 2018-06-11 15:19:00 2018-06-12 23:59:59 Outpatient [facility] [id number] 2018-06-10 09:18:00 2018-06-11 23:59:59 Outpatient [facility] [id number] 2018-06-04 10:45:00 2018-06-05 23:59:59 Outpatient [facility] [id number] 2018-05-01 16:27:00 2018-05-02 23:59:59 Outpatient [facility] [id number] 2018-04-02 15:15:00 2018-04-02 23:59:59 Outpatient Allison Hoffmannkhalif Badillo [facility] [id number] 2017-12-06 13:27:00 2017-12-07 13:27:00 Outpatient Elias Atwood [facility] [id number] Results Test Description Test Time Test Comments Results Result Comments Source Sodium Level 2019-05-07 23:24:00 Test Item Sodium Level (test code = 2951-2) 138 136-145 [facility] [id number] 23:24:00* Test Item Value Reference Range Interpretation Comments Potassium Level (test code = 2823-3) 3.5 3.5-5.1 [facility] HospitalChloride [id number] 23:24:00* Test Item Value Reference Range Interpretation Comments Chloride Level (test code = 2075-0) 103 98-107 [facility] HospitalCarbon Dioxide Foknk6913-60-12 23:24:00* Test Item Value Reference Range Interpretation Comments Carbon Dioxide Level (test code = 2028-9) 23 22-29 [facility] HospitalAnion [id number] 23:24:00* Test Item Value Reference Range Interpretation Comments Anion Gap (test code = 02687-1) 15.5 8-16 [facility] HospitalBlood Urea Keyuwupk8727-83-78 23:24:00* Test Item Value Reference Range Interpretation Comments Blood Urea Nitrogen (test code = 3094-0) 14 7-26 [facility] HospitalCreatinine2019-11-14 23:24:00* Test Item Value Reference Range Interpretation Comments Creatinine (test code = 2160-0) 1.15 0.72-1.25 [facility] HospitalBUN/Creatinine Ffhra0548-25-70 23:24:00* Test Item Value Reference Range Interpretation Comments BUN/Creatinine Ratio (test code = 3097-3) 12 12-16 [facility] HospitalEstimat Glomerular Filtration Rate 2019-05-07 23:24:00* Test Item Value Reference Range Interpretation Comments Estimat Glomerular Filtration Rate (test code = 387511708) > 60 >60 Ranges were taken from the National Kidney Disease Education Program and the [facility] literature.Reference ranges:60 or greater: Bsxlhl16-21 ( for 3 consecutive months): Chronic kidney disease 15 or less: Kidney failureRio Grande Regional HospitalGlucose Cjtem4593-89-18 23:24:00* Test Item Value Reference Range Interpretation Comments Glucose Level (test code = WRB7117) 173 74-118 H [facility] HospitalCalcium Rqeli6302-81-54 23:24:00* Test Item Value Reference Range Interpretation Comments Calcium Level (test code = 83594-2) 9.6 8.4-10.2 [facility] Hospital[facility] [id number] 23:20:00* Test Item Value Reference Range Interpretation Comments Urine WBC (test code = 5821-4) >50 0-5 H [facility] Hospital[facility] [id number] 23:20:00* Test Item Value Reference Range Interpretation Comments Urine RBC (test code = 01322-1) 6-10 0-5 H [facility] HospitalU[facility] Wpjevagw0885-29-92 23:20:00* Test Item Value Reference Range Interpretation Comments Urine Bacteria (test code = 99052-1) MANY NONE H [facility] Hospital[facility] Epithelial Ojkjt4631-75-16 23:20:00 * Test Item Value Reference Range Interpretation Comments Urine Epithelial Cells (test code = 25616-7) FEW NONE [facility] Hospital[facility] Transitional Epithelial Cells 2019-05-07 23:20:00* Test Item Value Reference Range Interpretation Comments Urine Transitional Epithelial Cells (test code = 8249-5) FEW NONE [facility] Renal Epithelial [id number] 23:20:00* Test Item Value Reference Range Interpretation Comments Urine Renal Epithelial Cells (test code = 39881-3) FEW NON E H [facility] HospitalCT [facility]PELVIS [id number] 23:16:00 [facility] [address] [place] [address] Patient Name: SHERI TANNER MR #: [id number] : 1945 Age/Sex: 74/M Req #: [id number] Adm Physician: Ordered by: SETH MENDOZA MD Report #: [id number] Location: ER Room/Bed: Procedure: [id number] CT/CT ABDOMEN/PELVIS WO Exam Date: 05/07/19 Exam [...] 05/07/192322 COPY TO: SETH MENDOZA MD Urine [id number] 23:11:00* Test Item Value Reference Range Interpretation Comments Urine Color (test code = 5778-6) YELLOW YELLOW [facility] Rcbekic2734-34-13 23:11:00* Test Item Value Reference Range Interpretation Comments Urine Clarity (test code = 39271-3) CLOUDY CLEAR H [facility] HospitalU[facility] Specific Llatkef9720-76-01 23:11:00 * Test Item Value Reference Range Interpretation Comments Urine Specific [place] (test code = 5811-5) 1.010 1.010-1.02 5 [facility] [id number] 23:11:00* Test Item Value Reference Range Interpretation Comments Urine pH (test code = 19272-1) 6 5-7 [facility] Leukocyte Wpvncfxv1247-09-80 23:11:00* Test Item Value Reference Range Interpretation Comments Urine Leukocyte Esterase (test code = 10193-1) LARGE NEGATIV E [facility] Hospital[facility] [id number] 23:11:00* Test Item Value Reference Range Interpretation Comments Urine Nitrite (test code = 72742-4) POSITIVE NEGATIVE [facility] [id number] 23:11:00* Test Item Value Reference Range Interpretation Comments Urine Protein (test code = 02645-5) 1+ NEGATIVE H [facility] HospitalU[facility] Glucose (UA)2019-05-07 23:11:00* Test Item Value Reference Range Interpretation Comments Urine Glucose (UA) (test code = 96660-7) NEGATIVE NEGATIVE [facility] Qbuklyj9674-66-13 23:11:00* Test Item Value Reference Range Interpretation Comments Urine Ketones (test code = 17896-5) NEGATIVE NEGATIVE [facility] Agicyceiokad5915-64-91 23:11:00* Test Item Value Reference Range Interpretation Comments Urine Urobilinogen (test code = 11735-0) 0.2 0.2-1 [facility] Hospital[facility] Hpgnwtfpj6774-92-56 23:11:00* Test Item Value Reference Range Interpretation Comments Urine Bilirubin (test code = 1977-8) NEGATIVE NEGATIVE [facility] Vxcwa5477-56-23 23:11:00* Test Item Value Reference Range Interpretation Comments Urine Blood (test code = 00252-7) MODERATE NEGATIVE [facility] HospitalWhite Blood Aynmh8226-04-45 23:10:00* Test Item Value Reference Range Interpretation Comments White Blood Count (test code = 6690-2) 9.63 4.8-10.8 [facility] HospitalRed Blood Stvds2989-70-39 23:10:00* Test Item Value Reference Range Interpretation Comments Red Blood Count (test code = 789-8) 4.99 4.3-5.7 [facility] HospitalHemoglobin2019-11-14 23:10:00* Test Item Value Reference Range Interpretation Comments Hemoglobin (test code = 89893-2) 15.8 14.0-18.0 [facility] HospitalHematocrit2019-11-14 23:10:00* Test Item Value Reference Range Interpretation Comments Hematocrit (test code = 4544-3) 43.7 38.2-49.6 [facility] HospitalMean Corpuscular Qxabdv7271-31-61 23:10:00* Test Item Value Reference Range Interpretation Comments Mean Corpuscular Volume (test code = 787-2) 87.6 81-99 [facility] HospitalMean Corpuscular Tdzjmpvyvz8229-93-40 23:10:00* Test Item Value Reference Range Interpretation Comments Mean Corpuscular Hemoglobin (test code = 785-6) 31.7 28-32 [facility] HospitalMean Corpuscular Hemoglobin Concent 2019-05-07 23:10:00* Test Item Value Reference Range Interpretation Comments Mean Corpuscular Hemoglobin Concent (test code = 786-4) 36.2 31-35 H [facility] HospitalRed Cell Distribution Styon0403-93-32 23:10:00* Test Item Value Reference Range Interpretation Comments Red Cell Distribution Width (test code = 81370-9) 13.3 11.7 -14.4 [facility] HospitalPlatelet Hqpuk8612-97-93 23:10:00* Test Item Value Reference Range Interpretation Comments Platelet Count (test code = 777-3) 343 140-360 [facility] HospitalNeutrophils (%) (Auto)2019-05-07 23:10:00 * Test Item Value Reference Range Interpretation Comments Neutrophils (%) (Auto) (test code = 02041-0) 73.8 38.7-80.0 [facility] HospitalLymphocytes (%) (Auto)2019-05-07 23:10:00 * Test Item Value Reference Range Interpretation Comments Lymphocytes (%) (Auto) (test code = 736-9) 15.8 18.0-39.1 L [facility] HospitalMonocytes (%) (Auto)2019-05-07 23:10:00* Test Item Value Reference Range Interpretation Comments Monocytes (%) (Auto) (test code = 5905-5) 7.9 4.4-11.3 [facility] HospitalEosinophils (%) (Auto)2019-05-07 23:10:00 * Test Item Value Reference Range Interpretation Comments Eosinophils (%) (Auto) (test code = 713-8) 1.1 0.0-6.0 [facility] HospitalBasophils (%) (Auto)2019-05-07 23:10:00* Test Item Value Reference Range Interpretation Comments Basophils (%) (Auto) (test code = 706-2) 0.5 0.0-1.0 [facility] HospitalIM GRANULOCYTES %2019-05-07 23:10:00* Test Item Value Reference Range Interpretation Comments IM GRANULOCYTES % (test code = IM GRANULOCYTES %) 0.9 0.0- 1.0 [facility] HospitalNeutrophils # (Auto)2019-05-07 23:10:00* Test Item Value Reference Range Interpretation Comments Neutrophils # (Auto) (test code = 751-8) 7.1 2.1-6.9 H [facility] HospitalLymphocytes # (Auto)2019-05-07 23:10:00* Test Item Value Reference Range Interpretation Comments Lymphocytes # (Auto) (test code = 46396-5) 1.5 1.0-3.2 [facility] HospitalMonocytes # (Auto)2019-05-07 23:10:00* Test Item Value Reference Range Interpretation Comments Monocytes # (Auto) (test code = 742-7) 0.8 0.2-0.8 [facility] HospitalEosinophils # (Auto)2019-05-07 23:10:00* Test Item Value Reference Range Interpretation Comments Eosinophils # (Auto) (test code = 711-2) 0.1 0.0-0.4 [facility] HospitalBasophils # (Auto)2019-05-07 23:10:00* Test Item Value Reference Range Interpretation Comments Basophils # (Auto) (test code = 704-7) 0.1 0.0-0.1 [facility] HospitalAbsolute Immature Granulocyte (auto 2019-05-07 23:10:00* Test Item Value Reference Range Interpretation Comments Absolute Immature Granulocyte (auto (kuldeep t code = Absolute Immature Granulocyte (auto) 0.09 0-0.1 [facility] CZNEC7413-61-34 08:22:0076[facility]CHE[facility] WZJJA4683-93-29 08:22:0016[facility]annCHEM EODRX6055-26-04 08:22:009.6[facility]annCHE[facility] BEWLQ5380-17-37 08:22:009.0[facility]CHE[facility] DQUSE7078-73-70 08:22:000.98[facility]annCHE[facility] JNINX0999-04-63 08:22:02383 [facility] RATET9539-04-37 08:22:003.6[facility]annCHEM PANEL 2017-12-07 08:22:0027[facility]annCHEM TJWUR7743-99-09 08:22:67856Eawgjewq HermannCHEM DQEGB4675-64-76 08:22:94307Hbkbdomn KisdqgaICTXXWIUFM8300-93-75 08:22:001.7[facility] VmxtjpmPMYAQUUUUM5646-52-66 08:22:000.4[facility] ENTSGBUDMJ1138-39-28 08:22:001.7[facility] WrhhrcbEAXGDEOZPO8852-64-54 08:22:004.3 [facility] VyovwrjQUQRHKJMRV8636-02-92 08:22:000.6[facility]annHEMATOLOGY 2017-12-07 08:22:000.1[facility] NhfsozbNGTDLHUAZL2333-33-01 08:22:009.4[facility] UhzzqshIUXPCQIIWZ1448-35-06 08:22:0025.7[facility] TzmdzthCPFUHNDCDD8862-00-23 08:22:0062.8[facility] KpnjttfZWKVEAOOAH9796-58-41 08:22:0088.2[facility] ZMYZVMDIIU3548-32-33 08:22:0034.5[facility] QfvlyceCVEEAZHQGK2697-20-80 08:22:00* Test Item Value Reference Range Interpretation Comments MCH (test code = MCH) 30.5 pg 27.0-31.0 [facility] XtyggxoEZKBWUDDNL6839-66-36 08:22:36026Anvdkwqn HermannHEMATOLOGY 2017-12-07 08:22:0014.1[facility] BafruqqSYRFIPZZVN8023-92-62 08:22:0043.7[facility] BcgnbmzLLDXQJCPKL4361-77-02 08:22:008.9[facility] SaybqqsSJHFLLCPRM7548-04-60 08:22:006.8[facility] HpyejitVENWTSYKGJ8353-97-99 08:22:0015.1[facility] GFJEUWHHZB1136-25-88 08:22:004.95[facility]annSPECIAL GPFGELYQK6427-61-42 08:22:007.1[facility] HermannCARDIAC HPNGFIG7891-97-48 20:30:00<0.02[facility]annCARDIAC YYCTDLY7254-70-21 20:30:00<1.0[facility]annCARDIAC ENZYMES 2017-12-06 20:30:0058[facility]annCARDIAC ERZCJQY4675-11-06 20:30:00<1.7 [facility]annCHEM NIQIE0740-32-94 20:30:0061[facility]annCHEM PANEL 2017-12-06 20:30:0010[facility]annCHEM SKVXG8308-89-16 20:30:0019[facility]annCHEM APITR5356-39-50 20:30:0056[facility]annCHEM LBLNP5406-05-80 20:30:000.8[facility]annCHEM ELBWB3373-22-19 20:30:0013.6[facility]annCHEM EGTAI9221-08-08 20:30:00* Test Item Value Reference Range Interpretation Comments B/C Ratio (test code = B/C Ratio) 14 1 6-25 [facility]CHE[facility] CGWLA2284-51-74 20:30:00* Test Item Value Reference Range Interpretation Comments A/G Ratio (test code = A/G Ratio) 1.1 1 0.7-1.6 [facility]CHE[facility] EDTCQ9548-18-86 20:30:003.4[facility]annCHEM PANEL 2017-12-06 20:30:001.19[facility]annCHEM DCZRB5455-77-07 20:30:36396[place] HermannCHEM ZWAEY7440-42-41 20:30:54028Vmhbupjo HermannCHEM VIXQS7396-76-40 20:30:0017[facility]annCHEM SBVSO5810-29-91 20:30:004.6[facility]annCHEM CKLIS5478-23-14 20:30:00794Uvfjqpij HermannCHEM SBOWR6792-17-45 20:30:003.9 [facility]CHE[facility] KAFOU0056-03-34 20:30:007.3[facility]annCHEM PANEL 2017-12-06 20:30:009.1[facility]annCHEM OXFJJ5527-40-88 20:30:0028[facility] OojoodgLALGMUFTLP8525-36-62 20:30:005.24[facility] KosbnhqCJRYJBIVRR5884-44-24 20:30:0015.8[facility] JnbmgmwEWRRQFVBAT5001-09-99 20:30:008.6[facility] JXZLKEZXUO6220-77-57 20:30:00* Test Item Value Reference Range Interpretation Comments MCH (test code = MCH) 30.1 pg 27.0-31.0 [facility] BokohcuKYBSZFCJUC4088-50-97 20:30:0088.6[facility]annHEMATOLOGY 2017-12-06 20:30:0046.4[facility] GionwhzMBCKPCYKQT9952-84-85 20:30:0034.0[facility] QmcwnacHRGDMYGRLD6920-97-58 20:30:0014.2[facility] CkqoftgYRFKIJTFHR8675-26-38 20:30:62523Urdkbkub YamulsoKOWXSXNGRR5319-23-36 20:30:009.3[facility] BXXBISAHHU9805-70-78 20:30:000.1[facility] PkkzjqeETRXUHZFTN3441-04-44 20:30:000.5 [facility] SanmjtiSDPIYHXAID4949-13-90 20:30:006.3[facility]annHEMATOLOGY 2017-12-06 20:30:000.7[facility] WchtyhyHJBDWPBOFP5546-60-45 20:30:0072.4[facility] AtmxnweCDPCNKBUVS1916-48-79 20:30:0020.4[facility] RporrgyVDDJOYFSHP7041-38-94 20:30:001.8[facility] YkugwafVJXYVQBTLY4207-68-52 20:30:006.2[facility] JJZHTJADGD5508-16-43 20:30:000.2[facility]
--- NOTE | 2020-02-06 15:13 | Diagnostic Imaging Report ---
EXAMINATION: CHEST SINGLE (PORTABLE) INDICATION: Chest pain. COMPARISON: None FINDINGS: TUBES and LINES: None. LUNGS: Normal lung volumes. Lungs are clear. No consolidations. Bibasilar atelectasis. PLEURA: No pleural effusion or pneumothorax. HEART AND MEDIASTINUM: The cardiomediastinal silhouette is unremarkable. BONES AND SOFT TISSUES: No acute osseous lesion. Soft tissues are unremarkable. UPPER ABDOMEN: No free air under the diaphragm. IMPRESSION: No acute thoracic radiographic abnormality. Signed by: Kathryn Pham MD on 02/06/2020 3:10 PM
[2020-02-06] MEDS: FAMOTIDINE 20 MG/2 ML VIAL IV SCH (15:36)
[2020-02-06 15:39] VITALS: BP 130/73
--- NOTE | 2020-02-06 15:39 | NUR ---
PT ARRIVED TO ROOM 204 VIA WHEELCHAIR FROM ER. PT AWAKE, ALERT, ORIENTED x3, AMBULATING INDEPENDENTLY WITHOUT DIFFICULTY, ON TELEMETRY, IV INTACT AND PATENT, NO SIGNS OF DISTRESS. ALL SAFETY MEASURES IN PLACE. PT HAS NO COMPLAINTS AT THIS TIME. WILL CONTINUE TO MONITOR.
[2020-02-06 15:55] VITALS: BP 130/73
[2020-02-06] MEDS ORDERED: ASPIRIN81 MG PO (17:12)
[2020-02-06 17:13] VITALS: BP 130/73
--- NOTE | 2020-02-06 19:05 | NUR ---
BEDSIDE SHIFT REPORT RECEIVED. PATIENT IS RESTING IN BED, AAOX3. RESP EVEN AND UNLABORED. PATIENT DENIES OF ANY PAIN OR DISCOMFORT AT THIS TIME. EDUCATED PT ABOUT FALL PRECAUTIONS. PT VERBALIZED UNDERSTANDING. CALL LIGHT WITH IN EASY REACH. INSTRUCTED PT TO USE CALL LIGHT FOR ALL THE NEEDS. BED IS LOW AND LOCKED. SIDE RAILS X2. BED ALARM IS ON. PT DENIES NEEDS AT THIS TIME. CONTINUE TO MONITOR CLOSELY
[2020-02-06 20:01] LABS: CREATINE KINASE 44 IU/L (30-200)
[2020-02-06] MEDS ORDERED: ACETAMINOPHEN 325 MG TAB PO PRN (20:30)
[2020-02-06] MEDS ORDERED: DEXTROSE 50% SYRINGE 50 ML IV PRN (20:30)
[2020-02-06] MEDS ORDERED: METOPROLOL TARTRATE INJ 1 MG/ML VIAL IV PRN (20:30)
[2020-02-06 20:53] VITALS: BP 130/62
[2020-02-06 21:21] VITALS: BP 130/62
[2020-02-06] MEDS: INSULIN LISPRO 100 UNIT/1 ML 3ML VIAL SQ SCH (21:30)
[2020-02-07 01:49] VITALS: BP 127/77
[2020-02-07] MEDS: FAMOTIDINE 20 MG/2 ML VIAL IV SCH (02:33)
[2020-02-07 03:17] LABS: BASOPHILS % 0.5 % (0.0-1.0); EOSINOPHILS # (AUTO) 0.1 (0.0-0.4); EOSINOPHILS % 2.2 % (0.0-6.0); HEMATOCRIT 41.2 % (38.2-49.6); HEMOGLOBIN 14.1 g/dL (14.0-18.0); LYMPHOCYTES # (AUTO) 1.7 (1.0-3.2); LYMPHOCYTES % 26.5 % (18.0-39.1); MEAN CORPUSCULAR HEMOGLOBIN 30.2 pg (28-32); MEAN CORPUSCULAR HGB CONC 34.2 g/dL (31-35); MEAN CORPUSCULAR VOLUME 88.2 fL (81-99); MONOCYTES # (AUTO) 0.6 (0.2-0.8); MONOCYTES % 9.6 % (4.4-11.3); NEUTROPHILS # (AUTO) 3.8 (2.1-6.9); NEUTROPHILS % 60.3 % (38.7-80.0); PLATELET COUNT 273 x10e3/uL (140-360); RED BLOOD COUNT 4.67 x10e6/uL (4.3-5.7); RED CELL DISTRIBUTION WIDTH 13.4 % (11.7-14.4)
[2020-02-07 03:30] LABS: ALANINE AMINOTRANSFERASE 9 IU/L (0-55); ALBUMIN 3.4 g/dL (3.5-5.0); ALBUMIN/GLOBULIN RATIO 1.3 (0.8-2.0); ALKALINE PHOSPHATASE 42 IU/L (40-150); BLOOD UREA NITROGEN 17 mg/dL (7-26); BUN/CREATININE RATIO 16 (6-25); CARBON DIOXIDE 21 mmol/L (22-29); CHLORIDE 108 mmol/L (98-107); CHOL/HDL RATIO 5.1 (3.9-4.7); CHOLESTEROL 137 MD/DL (0-199); CREATININE, SERUM 1.04 mg/dL (0.72-1.25); EST GLOMERULAR FILTRATION RATE > 60 ML/MIN (60-); GLUCOSE 120 mg/dL (74-118); HDL CHOLESTEROL 27 MG/DL (40-60); LDL CHOLESTEROL 66 MG/DL (60-130); SODIUM 139 mmol/L (136-145); TRIGLYCERIDES 218 MG/DL (0-149)
[2020-02-07 04:13] LABS: CREATINE KINASE 39 IU/L (30-200)
[2020-02-07 06:24] VITALS: BP 114/71
--- NOTE | 2020-02-07 07:01 | NUR ---
CHANGE OF SHIFT REPORT RECEIVED FROM CINDER BLOCK MASON. PT AWAKE, ALERT, NO SIGNS OF DISTRESS. IN STABLE CONDITION.
[2020-02-07] MEDS: INSULIN LISPRO 100 UNIT/1 ML 3ML VIAL SQ SCH (07:30)
[2020-02-07 07:32] VITALS: BP 148/73
[2020-02-07 08:24] VITALS: BP 148/73
[2020-02-07] MEDS ORDERED: ASPIRIN 81 MG ENTERIC COATED PO SCH (09:00)
[2020-02-07] MEDS ORDERED: PRAVASTATIN 20 MG TAB PO SCH (09:00)
[2020-02-07] MEDS ORDERED: CARVEDILOL 3.125 MG TAB PO SCH (09:00)
[2020-02-07] MEDS ORDERED: RAMIPRIL 5 MG CAP PO SCH (09:00)
--- NOTE | 2020-02-08 08:37 | Discharge Summary ---
ADMISSION DIAGNOSES: Chest pain, hypertension, hyperlipidemia, type 2 diabetes, and morbid obesity with a BMI of 40.1. DISCHARGE DIAGNOSES: Chest pain, hypertension, hyperlipidemia, type 2 diabetes, morbid obesity with a BMI of 40.1, rule out acute coronary syndrome. HISTORY: Hypertension, hyperlipidemia, type 2 diabetes, CAD, bladder cancer. SURGICAL HISTORY: Urostomy, prostatectomy. FAMILY HISTORY: The patient's brother had diabetes. The patient's grandmother and father had cancer. SOCIAL HISTORY: Noncontributory. HOSPITAL COURSE: A 74-year-old male admits with complaints of chest pressure, that was left-sided and began a few days ago while sitting in his recliner. The pressure is intermittent and yesterday it lasted longer than normal, which is what made him come to the ER. Once in the ER, the pain stopped spontaneously. He says he walks about 2 miles every few days and this exercise does not worsen the pain. He recently had a "moderately abnormal stress test" on 01/21 and is supposed to follow up with Cardiology on 02/16. Upon admission assessment, the patient believes that his chest pressure is likely related to anxiety due to the recent abnormal stress test. He says that his elevator pilot says that there is no need for heart catheterization at this point. On admission, troponins were negative x3. Chest x-ray was negative. Echo showed an EF of 55% to 60%. EKG showed sinus bradycardia. Triglycerides were slightly elevated at 218. A1c was 7.4. The patient will discharge home on same home medicines. He will follow up with primary care in 1 to 2 weeks and Cardiology as previously scheduled. He was advised for a low-cholesterol diet. The patient understands instructions and agrees with plan. He is feeling much better and ready to discharge home. Dictated by Tete Wei NP MD JOSUHA Posadas/MARGARITO /[id number]
== END 2020-02-07 12:00 | disposition home or self-care (01) ==
LOC: ER 13:18 → ERHOLD 13:25 → MED/SURG2 15:47
PROVIDERS: ADMIT Internal Medicine; ATTEND Internal Medicine
DX: R07.9 Chest pain, unspecified (principal); I10 Essential (primary) hypertension; E11.9 Type 2 diabetes mellitus without complications; E66.01 Morbid (severe) obesity due to excess calories; Z68.41 Body mass index [BMI] 40.0-44.9, adult; E78.5 Hyperlipidemia, unspecified; Z85.51 Personal history of malignant neoplasm of bladder; I25.10 Atherosclerotic heart disease of native coronary artery without angina pectoris; Z11.59 Encounter for screening for other viral diseases
CPT/HCPCS: 36415 ×2; 71045; 80053 ×2; 80061; 82550 ×2; 82553 ×2; 82948 ×2; 83036; 83880; 84443; 84484 ×2; 85025 ×2; 85610; 85730; 93005; 93306; 99284; C9113; G0378 ×2; U0002